=== PATIENT | male | born 1955 | race Caucasian/White ===

== ENCOUNTER → 2016-10-14 | Outpatient (CLI) | payer MEDICARE ==
--- NOTE | 2016-10-14 07:57 | MR ---
EXAMINATION TYPE: MR lumbar spine wo con DATE OF EXAM: 10/14/2016 COMPARISON: Prior MR lumbar spine 12/23/2013 HISTORY: Hereditary and idiopathic neuropathy, unspec, pain x 5 years TECHNIQUE: Multiplanar, multisequence images of the lumbar spine were acquired. L1-L2: Normal disc appearance without desiccation. No herniation, protrusion or disc bulging. No ca nal stenosis is present. Foramina are patent bilaterally. L2-L3: Posterior broad-based disc bulge causes mild anterior mass effect on the thecal sac. There is some facet arthropathy with hypertrophic change of the ligamentum flavum encroaches somewhat on the l ateral recesses right greater than left. On mild right-sided foraminal encroachment. L3-L4: Facet arthropathy with hypertrophy of the ligamentum flavum encroaches upon the lateral recess es. Circumferential extension of endplate disc complex contributes with scoliosis to cause some right -sided foraminal encroachment, there is anterior mass effect on the thecal sac. No significant centra l canal stenosis. L4-L5: Hypertrophy of ligamentum flavum, facet arthropathy change contributes with posterior disc her niation which extends somewhat eccentric towards the left resulting in left greater than right forami nal encroachment. There is moderate central canal stenosis, trefoil appearance of the thecal sac. L5-S1: Broad-based posterior disc bulge causes mild anterior mass effect on the thecal sac similar to prior exam. Facet arthropathy changes present. No significant central stenosis. Left-sided foraminal encroachment is present due to lateral extension endplate disc complex. Facet arthropathy, hypertrop hic ligamentum flavum and posterior extension of endplate disc complex eccentric towards the right li alma causes some mass effect on the right S1 neural foramen Lumbar segments are intact. No paraspinal masses are identified. Conus medullaris has a normal appe arance. Lumbar vertebral bodies show preserved height and alignment. There is multilevel spondylosis with endplate discogenic marrow signal change. Loss of disc height and signal present at the interver tebral levels with exception of L1 to. There is multilevel vacuum disc phenomenon additionally. There is a levoscoliosis centered at the mid lumbar spine. IMPRESSION: Spinal stenosis greatest at L4-5, multilevel foraminal encroachment, scoliosis, degenerative disc dis ease is similar to prior exam.
== END | disposition home or self-care (01) ==
LOC: RADMRIMAIN 06:59
PROVIDERS: ATTEND Family Medicine
DX: M48.06 Spinal stenosis, lumbar region (principal); M51.36 Other intervertebral disc degeneration, lumbar region; M41.86 Other forms of scoliosis, lumbar region
CPT/HCPCS: 72148

== ENCOUNTER 2016-11-07 11:00 | Day surgery (SDC) | payer MEDICARE ==
[2016-10-31 14:48] VITALS: BMI 36.2
[~2016-11-07 11:00] MED LIST: LACTATED RINGERS 1,000 ML IV SCH; LIDOCAINE 1% 20 ML VIAL (10MG/ML) FOR IV START INTRADERMA PRN
[2016-11-07] MEDS: CYCLOPENTOLATE 1% OPHTH SOLN 2 ML BTL OP ONE ×2 (12:32→12:44)
[2016-11-07] MEDS: PHENYLEPHRINE 10% OPHTH DROPS 5 ML BTL OP ONE ×3 (12:34→12:47)
[2016-11-07] MEDS: KETOROLAC 0.5% OPHTH DROPS 3 ML BTL OP ONE ×3 (12:36→12:50)
[2016-11-07 12:40] VITALS: RESP 16; TEMP 98.2
[2016-11-07] MEDS ORDERED: PROPOFOL 10 MG/ML 20 ML VIAL IV ONE (13:37)
[2016-11-07] MEDS ORDERED: EPINEPHrine (PF) 0.5 ML in BALANCED SALT IRRIG SOLN COMB2 500 ML IRRIGATION ONE (13:44)
[2016-11-07] MEDS ORDERED: HYALURONATE SODIUM INTRAOCULAR 1 EACH SYRINGE (10MG/ML) INTRAOCULA ONE (13:48)
[2016-11-07] MEDS ORDERED: BALANCED SALT IRRIG SOLN COMB2 15 ML IRRIG.SOLN IRRIGATION ONE (13:48)
--- NOTE | 2016-11-07 13:59 | P.OP ---
Date of Procedure: 11/07/16 Preoperative Diagnosis: Postoperative Diagnosis: Procedure(s) Performed: PREOPERATIVE DIAGNOSIS: Cataract, right eye. POSTOPERATIVE DIAGNOSIS: Cataract, right eye. OPERATION: Phacoemulsification cataract, right eye. DESCRIPTION OF PROCEDURE: The patient was taken to the preoperative holding area. Intravenous Propofol was given so as to bring about adequate sedation. The following mixture was given for local anesthesia: 5 mL of 2% lidocaine, 5 mL of 0.75% Marcaine, and 1 mL of Wydase. Approximately 4 mL was injected in the retrobulbar space of the surgical eye. Additional 1 mL was then directed to the temporal area of the surgical eye. This was performed to allow adequate neurological block of the facial muscles. The patient was revived and then taken into the operative room. The patient was prepped and draped in the usual sterile manner for the operative eye. A lid speculum was put into position. The conjunctiva was resected back from the limbus in the 12 o'clock position. Bleeding was controlled with electrocautery. A #69 blade was then used and a half-thickness scleral incision approximately 1-mm posterior to the limbus was made on bare sclera. This was shelved in the clear cornea using a crescent knife. Next a 15-degree blade was used to make a stab incision at the 3 o' clock position at the corneolimbal interface. Keratome blade was then used and the superior wound was extended into the anterior chamber. Viscoelastic was injected into the anterior chamber and to maintain its form. Next, a cystotome was used and a continuous anterior capsulotomy was made without difficulty. Hydrodissection using a blunt cannula and BSS was performed. Phaco probe was then employed and a groove extending from 12 to 6 o'clock in the lens was created. A Rafael wand was used through the stab incision so as to perform a divide and conquer technique. Next an irrigation aspiration probe was utilized and any residual cortex was removed from the eye. Again, viscoelastic was injected into the anterior chamber. An Kristopher posterior chamber lens implant was placed in the cartridge and injected into the anterior chamber without difficulty. The [place] [employer] hook was utilized to spin the lens into position and this was again performed without any difficulty. The irrigation and aspiration probe was again employed and any residual viscoelastic was removed from the eye. Then BSS was injected into the limbal stab incision and the anterior chamber re-inflated. The conjunctiva was reapproximated using electrocautery. One drop of 0.25% Timoptic was placed over the corneal along with TobraDex ophthalmic ointment. Two sterile patches and a Chan eye shield were taped into position. The patient was transported to the recovery room in stable condition. Implants: Pathology: none sent Condition: stable Disposition: same day Indications for Procedure: Operative Findings: Description of Procedure:
[2016-11-07 14:05] VITALS: PULSE 60
[2016-11-07 14:18] VITALS: BP 116/74
[2016-11-07] MEDS ORDERED: TIMOLOL 0.5% OPHTH SOLN (PF) 0.2 ML DROPERETTE OP ONE (23:00)
[2016-11-07] MEDS ORDERED: GENTAMICIN/PREDNISOL AC OPHTH OINT 3.5GM OPHTHALMIC ONE (23:00)
[2016-11-07] MEDS ORDERED: BUPIVACAINE (PF) 0.75% 5 ML, LIDOCAINE 4% (PF) 5 ML, HYALURONIDASE, HUMAN RECOMB 150 UNIT MISCELLANE ONE ×3 (23:00)
== END 2016-11-07 14:35 | disposition home or self-care (01) ==
LOC: OR 11:00
PROVIDERS: ATTEND Ophthalmology
DX: H26.9 Unspecified cataract (principal); E11.9 Type 2 diabetes mellitus without complications; I10 Essential (primary) hypertension; M19.90 Unspecified osteoarthritis, unspecified site; F32.9 Major depressive disorder, single episode, unspecified; J44.9 Chronic obstructive pulmonary disease, unspecified; F17.200 Nicotine dependence, unspecified, uncomplicated; M48.00 Spinal stenosis, site unspecified; Z79.82 Long term (current) use of aspirin; Z88.5 Allergy status to narcotic agent; Z79.899 Other long term (current) drug therapy
CPT/HCPCS: 66984; V2632; J2001; J3470; J0171; J2704

== ENCOUNTER 2018-11-06 13:04 | Day surgery (SDC) | payer MEDICARE ==
[2018-11-01 17:55] VITALS: BMI 38.0
[2018-11-06 13:34] VITALS: TEMP 98.9
[2018-11-06] MEDS ORDERED: PROPOFOL 10 MG/ML 20 ML VIAL IV ONE (13:44)
[2018-11-06] MEDS ORDERED: fentaNYL (PF) 50 MCG/ML 2 ML AMP ONE (13:44)
[2018-11-06] MEDS ORDERED: MIDAZOLAM 2 MG/2 ML VIAL ONE (13:44)
[2018-11-06] MEDS ORDERED: LIDOCAINE 1% INJ 10MG/ML (20 ML MDV) ONE (13:44)
--- NOTE | 2018-11-06 13:45 | P.GSHP ---
History of Present Illness H&P Date: 11/06/18 Chief Complaint: GERD This is a 62-year-old male with history of GERD. Patient is a known hiatal hernia. He presents today for EGD. Past Medical History Past Medical History: GERD/Reflux, Musculoskeletal Disorder Additional Past Medical History / Comment(s): HIATAL HERNIA. NEUROPATHY NAINA FEET. DDD, SPINAL STENOSIS, L3-L5 DISC HERNIATION. HX PEPTIC ULCER. SPINAL MENNIGITIS 1979'. VERTIGO. History of Any Multi-Drug Resistant Organisms: None Reported Past Surgical History: Orthopedic Surgery, Tonsillectomy Additional Past Surgical History / Comment(s): RT ROTATOR CUFF SURGERY X 2. I&D LEFT LEG D/T GANGRENE. SINUS SURGERY(DEVIATED SEPTUM). GANGLION CYSTS. INFECTED GROIN LYMPH NODES; LYMPH NODES REMOVED-BENIGN. BILAT CTR. EGD/COLONOSCOPY. LASER VARICOSE VEINS. Past Anesthesia/Blood Transfusion Reactions: Previous Problems w/ Anesthesia Additional Past Anesthesia/Blood Transfusion Reaction / Comment(s): NO HX BLOOD TRANSFUSION. WOKE DURING SINUS Sx, CATARACT Sx. Smoking Status: Former smoker - Past Family History Mother Family Medical History: Congestive Heart Failure (CHF), Diabetes Mellitus, Hypertension, Renal Disease Additional Family Medical History / Comment(s): X3 IA'S, PACEMAKER Father Family Medical History: CVA/TIA, Dementia, Hypertension Additional Family Medical History / Comment(s): PARKINSON'S, ETOH Medications and Allergies Home Medications Medication Instructions Recorded Confirmed Type ARIPiprazole [Abilify] 2 mg PO HS 11/01/18 11/01/18 History Famotidine [Pepcid] 40 mg PO HS 11/01/18 11/06/18 History HYDROcodone/APAP 5-325MG [[place] 1 tab PO Q6HR PRN 11/01/18 11/06/18 History 5-325] Meclizine [Antivert] 12.5 mg PO TID PRN 11/01/18 11/01/18 History Allergies Allergy/AdvReac Type Severity Reaction Status Date / Time venom-honey bee Allergy Swelling Verified 11/01/18 16:58 [bee venom (honey bee)] Surgical - Exam Vital Signs Temp Pulse Resp BP Pulse Ox 98.9 F 90 16 124/76 94 L 11/06/18 13:32 11/06/18 13:32 11/06/18 13:32 11/06/18 13:32 11/06/18 13:32 - General well developed, well nourished, no distress - Eyes PERRL - ENT normal pinna - Neck no masses - Respiratory normal expansion - Cardiovascular Rhythm: regular - Abdomen Abdomen: soft, non tender Assessment and Plan Assessment: GERD. We'll perform EGD.
--- NOTE | 2018-11-06 13:57 | P.OP ---
Date of Procedure: 11/06/18 Preoperative Diagnosis: GERD Postoperative Diagnosis: Antral gastritis Hiatal hernia Esophagitis Procedure(s) Performed: EGD Anesthesia: MAC Surgeon: Abdifatah Pinon Pathology: other (Antrum, esophagus) Condition: stable Disposition: PACU Description of Procedure: The patient's placed on the endoscopy table in the lateral position. He received IV sedation. The gastroscope was placed oropharynx passed in the esophagus and into the stomach. Scope was then placed through the pylorus. The first and second portion of duodenum appeared normal. Scope was then brought back the antrum this. Mildly inflamed. A biopsies was performed. Scope was then retroflexed and the manger of the stomach appeared normal. The GE junction was at 40 cm. Patient had a moderate to large hiatal hernia. The GE junction was at 38 cm. The distal esophagus appeared mildly inflamed and a biopsies performed. The proximal esophagus appeared normal. Scope withdrawn for patient.
[2018-11-06 14:00] VITALS: RESP 18
[2018-11-06 14:19] VITALS: BP 123/78; PULSE 68
== END 2018-11-06 14:35 | disposition home or self-care (01) ==
LOC: ORWHC2ENDO 13:04
PROVIDERS: ATTEND Surgery
DX: K21.0 Gastro-esophageal reflux disease with esophagitis (principal); K29.50 Unspecified chronic gastritis without bleeding; K44.9 Diaphragmatic hernia without obstruction or gangrene; M48.00 Spinal stenosis, site unspecified; G62.9 Polyneuropathy, unspecified; K21.9 Gastro-esophageal reflux disease without esophagitis; Z79.899 Other long term (current) drug therapy; Z79.891 Long term (current) use of opiate analgesic; Z91.030 Bee allergy status; Z98.49 Cataract extraction status, unspecified eye; Z87.891 Personal history of nicotine dependence; Z82.49 Family history of ischemic heart disease and other diseases of the circulatory system; Z83.3 Family history of diabetes mellitus
CPT/HCPCS: 88305; 43239; J2250; J2001; J3010; J2704

== ENCOUNTER 2018-11-07 07:18 | Inpatient (IN) | payer MEDICARE ==
[~2018-11-07 07:18] MED LIST changes: +DEXAMETHASONE SOD PHOSPHATE 10 MG/ML 1 ML VIAL IV ONE; -LACTATED RINGERS 1,000 ML IV SCH; -LIDOCAINE 1% 20 ML VIAL (10MG/ML) FOR IV START INTRADERMA PRN; +MIDAZOLAM 2 MG/2 ML VIAL IV PRN; +ONDANSETRON 4 MG/2 ML VIAL IVP ONE; +SCOPOLAMINE 1.5MG/72HR PATCH TRANSDERM ONE; +ceFAZolin 3 GM in SODIUM CHLORIDE 0.9% 100 ML IVPB ONE
[2018-11-07] MEDS ORDERED: HEPARIN SODIUM,PORCINE 5,000 UNIT/ML 1 ML VIAL SQ ONE (08:40)
--- NOTE | 2018-11-07 08:41 | P.GSHP ---
History of Present Illness H&P Date: 11/07/18 Chief Complaint: GERD This is a 62-year-old male who has complaints of GERD. NThe patient has had long-standing problems with reflux esophagitis. The patien t underwent recent EGD is found have evidence of esophagitis. Patient has been well informed on the procedure of laparoscopic Elio fundoplication. The patient is aware the risk of the conversion to the open procedure, risk of injury to the stomach, liver and spleen. The patient is also a risk of recurrent GERD and dysphagia symptoms. The patient understands there is a postoperative diet of full liquids for 2 weeks after surgery. Past Medical History Past Medical History: GERD/Reflux, Musculoskeletal Disorder Additional Past Medical History / Comment(s): HIATAL HERNIA. NEUROPATHY NAINA FEET. DDD, SPINAL STENOSIS, L3-L5 DISC HERNIATION. HX PEPTIC ULCER. SPINAL MENNIGITIS 1979'. VERTIGO. History of Any Multi-Drug Resistant Organisms: None Reported Past Surgical History: Orthopedic Surgery, Tonsillectomy Additional Past Surgical History / Comment(s): RT ROTATOR CUFF SURGERY X 2. I&D LEFT LEG D/T GANGRENE. SINUS SURGERY(DEVIATED SEPTUM). GANGLION CYSTS. INFECTED GROIN LYMPH NODES; LYMPH NODES REMOVED-BENIGN. BILAT CTR. EGD/C OLONOSCOPY. LASER VARICOSE VEINS. Past Anesthesia/Blood Transfusion Reactions: Previous Problems w/ Anesthesia Additional Past Anesthesia/Blood Transfusion Reaction / Comment(s): NO HX BLOOD TRANSFUSION. WOKE DURING SINUS Sx, CATARACT Sx. Past Psychological History: Anxiety, Depression Smoking Status: Former smoker Past Alcohol Use History: None Reported Additional Past Alcohol Use History / Comment(s): QUIT SMOKING IN 2009, SMOKING AT AGE 15, SMOKED 1 PPD. Past Drug Use History: None Reported - Past Family History Mother Family Medical History: Congestive Heart Failure (CHF), Diabetes Mellitus, Hypertension, Renal Disease Additional Family Medical History / Comment(s): X3 NC'S, PACEMAKER Father Family Medical History: CVA/TIA, Dementia, Hypertension Additional Family Medical History / Comment(s): PARKINSON'S, ETOH Medications and Allergies Home Medications Medication Instructions Recorded Confirmed Type ARIPiprazole [Abilify] 2 mg PO HS 11/01/18 11/01/18 History Famotidine [Pepcid] 40 mg PO HS 11/01/18 11/06/18 History HYDROcodone/APAP 5-325MG [[place] 1 tab PO Q6HR PRN 11/01/18 11/06/18 History 5-325] Meclizine [Antivert] 12.5 mg PO TID PRN 11/01/18 11/01/18 History Allergies Allergy/AdvReac Type Severity Reaction Status Date / Time venom-honey bee Allergy Swelling Verified 11/01/18 16:58 [bee venom (honey bee)] Surgical - Exam Vital Signs Temp Pulse Resp BP Pulse Ox 98.1 F 69 20 128/68 94 L 11/07/18 08:20 11/07/18 08:20 11/07/18 08:20 11/07/18 08:20 11/07/18 08:20 - General well developed, well nourished, no distress - Eyes PERRL - ENT normal pinna - Neck no masses - Respiratory normal expansion - Cardiovascular Rhythm: regular - Abdomen Abdomen: soft, non tender Results - Labs 11/07/18 08:20 Diabetes panel 11/07/18 Range/Units 08:20 Potassium 4.6 (3.5-5.1) mmol/L Pituitary panel 11/07/18 Range/Units 08:20 Potassium 4.6 (3.5-5.1) mmol/L Adrenal panel 11/07/18 Range/Units 08:20 Potassium 4.6 (3.5-5.1) mmol/L Assessment and Plan Assessment: GERD. We'll perform EGD.
[2018-11-07] MEDS ORDERED: MIDAZOLAM 2 MG/2 ML VIAL ONE (09:07)
[2018-11-07] MEDS ORDERED: GLYCOPYRROLATE 0.2 MG/ML 2 ML VIAL ONE (09:07)
[2018-11-07] MEDS ORDERED: SUCCINYLCHOLINE CHLORIDE 100 MG/5 ML SYR IV ONE (09:07)
[2018-11-07] MEDS ORDERED: LIDOCAINE 1% INJ 10MG/ML (20 ML MDV) ONE (09:07)
[2018-11-07] MEDS ORDERED: fentaNYL (PF) 50 MCG/ML 2 ML AMP ONE (09:07)
[2018-11-07] MEDS ORDERED: ROCURONIUM BROMIDE 10 MG/ML 10 ML VIAL IV ONE (09:07)
[2018-11-07] MEDS ORDERED: NEOSTIGMINE 1 MG/ML 10 ML VIAL ONE (09:07)
[2018-11-07] MEDS ORDERED: PHENYLEPHRINE-0.9% NACL SYG 1 MG/10 ML SYRINGE ONE (09:07)
[2018-11-07] MEDS ORDERED: PROPOFOL 10 MG/ML 20 ML VIAL IV ONE (09:07)
[2018-11-07] MEDS ORDERED: LACTATED RINGERS 700 ML IV ONE (09:13)
[2018-11-07] MEDS ORDERED: BUPIVACAIN-EPI 0.25%-1:200,000 30 ML VIAL SQ ONE (09:47)
[2018-11-07] MEDS ORDERED: LACTATED RINGERS 1,000 ML IV ONE (09:56)
[2018-11-07] MEDS: HYDROmorphone 0.5 MG/0.5 ML SYRINGE IVP PRN ×4 (10:19→10:50)
[2018-11-07] MEDS ORDERED: HYDROmorphone 1 MG/ML 1 ML SYRINGE IVP PRN (10:24)
--- NOTE | 2018-11-07 10:24 | P.OP ---
Date of Procedure: 11/07/18 Preoperative Diagnosis: GERD Postoperative Diagnosis: GERD Procedure(s) Performed: Laparoscopic Elio fundoplication Anesthesia: CEM Surgeon: Abdifatah Pinon Estimated Blood Loss (ml): 5 Pathology: none sent Condition: stable Disposition: PACU Description of Procedure: HarThe patient was placed on the operating table in the supine position. The patient received general anesthesia. And was placed in dorsal lithotomy position. The patient was prepped and draped in the usual sterile fashion. The skin incision sites were anesthetized with 1% local Xylocaine. The skin was incised in the left periumbilical area and then using a blade less 5 mm trocar under direct visualization panel cavity was entered. After adequate insufflation the laparoscope was then placed into the peritoneal cavity. Next a 5 mm trochars placed in the right epigastric position. Another 5 millimeter trocar the right lateral position. Another 5 millimeter trocar in the left lateral position a 5 mm trocar is placed in the left epigastric position. And then the initial 5 mm trocar was exchanged for a 10 mm trocar. The left lateral lobe liver was retracted. The hernia was seen. The crural defect was then dissected using the Harmonic scissors device. A 360 crural dissection was performed the esophagus stomach was reduced back into the peritoneal Cavity. The crural defect was then closed using 2-0 Ethibond suture. Next the fundus of the stomach was mobilized using the [place] scissors device. and then a 58- [place] bougie dilator was placed oropharynx passed into the esophagus and stomach the fundal plication wrap was then performed by grasping the fundus post eriorly and bringing it around the esophagus and stomach fundoplication was then performed using 2-0 Ethibond suture. Care was taken that the fundal location rested over top of the intra-abdominal esophagus. There was no injury seen to the stomach or esophagus. The dilator was then withdrawn. The abdomen was irrigated there is no bleeding seen. The trochars were then withdrawn and then skin incision sites were closed using 3-0 Monocryl suture Steri-Strips are applied. Patient thought procedure well and sent to recovery room in stable condition.
[2018-11-07] MEDS: LACTATED RINGERS 1,000 ML IV SCH (13:30)
[2018-11-07] MEDS ORDERED: ACETAMINOPHEN TAB 325 MG TAB PO PRN (14:15)
[2018-11-07] MEDS ORDERED: HYDROcodone/APAP 5-325MG 1 EACH TAB PO PRN (14:15)
--- NOTE | 2018-11-07 15:34 | FL ---
EXAMINATION TYPE: FL esophagus cervic/pharynx DATE OF EXAM: 11/07/2018 COMPARISON: NONE HISTORY: Post Myles fundoplication TECHNIQUE: A single contrast UGI study is performed. FINDINGS: There is moderate free air under the diaphragms. The gastroesophageal junction opens to a normal caliber. There is mild to moderate hesitancy of contr ast passing through the postsurgical Myles. Fluid within the stomach is unremarkable. IMPRESSION: 1. No extravasation of contrast post Myles fundoplication. No significant stenosis is noted
[2018-11-07] MEDS ORDERED: BENZOCAINE/MENTHOL LOZENG 1 EACH LOZENGE MUCOUS MEM PRN (16:54)
[2018-11-07] MEDS: D5-0.45% NACL WITH KCL 20MEQ/L 1,000 ML IV SCH ×2 (18:30→18:32)
[2018-11-08] MEDS: LACTATED RINGERS 1,000 ML IV SCH (04:32)
[2018-11-08] MEDS: D5-0.45% NACL WITH KCL 20MEQ/L 1,000 ML IV SCH ×2 (06:16→09:23)
[2018-11-08 07:32] VITALS: BP 134/82; PULSE 73; RESP 16; TEMP 98.2
[2018-11-08] MEDS ORDERED: ENOXAPARIN 40 MG/0.4 ML SYRINGE SQ SCH (09:00)
[2018-11-08 09:08] LABS: African American GFR (CKD) >90 (>60 ml/min/1.73 sqM); Anion Gap 12 mmol/L; Blood Urea Nitrogen 11 mg/dL (9-20); Calcium 8.6 mg/dL (8.4-10.2); Carbon Dioxide 24 mmol/L (22-30); Chloride 104 mmol/L (98-107); Glucose 158 mg/dL (74-99); Magnesium 2.1 mg/dL (1.6-2.3); Non-African American GFR(CKD) >90 (>60 ml/min/1.73 sqM); Sodium 140 mmol/L (137-145)
[2018-11-08 09:18] LABS: Basophils % (A) 0 %; Eosinophils # (A) 0.1 k/uL (0-0.7); Eosinophils % (A) 1 %; HCT 42.8 % (39.0-53.0); HGB 13.8 gm/dL (13.0-17.5); Lymphocytes # (A) 1.2 k/uL (1.0-4.8); Lymphocytes % (A) 12 %; MCH 29.3 pg (25.0-35.0); MCHC 32.1 g/dL (31.0-37.0); MCV 91.2 fL (80.0-100.0); Mean Platelet Volume 7.9; Monocytes # (A) 0.5 k/uL (0-1.0); Monocytes % (A) 5 %; Neutrophils # (A) 8.5 k/uL (1.3-7.7); Neutrophils % (A) 82 %; Platelet Count 297 k/uL (150-450); RDW 13.1 % (11.5-15.5); WBC 10.4 k/uL (3.8-10.6)
--- NOTE | 2018-11-08 12:09 | P.DS ---
Providers Date of admission: 11/07/18 07:18 Expected date of discharge: 11/08/18 Attending physician: Abdifatah Pinon Primary care physician: Stated None Hospital Course: 62-year-old male who underwent Elio fundoplication with Dr. Pinon on 11/07/2018. Patient is doing well postoperatively. Esophagram completed negative for leak or obstruction. He is tolerating clear liquid diet. Pain controlled with oral medications. Vital signs have an stable. He is stable for discharge home today. Please see EMR for further hospital course details. Discharge diagnosis 1. GERD, status post Elio fundoplication Nurse practitioner note has been reviewed by physician. Signing provider agrees with the documented findings, assessment, and plan of care. Plan - Discharge Summary Discharge Rx Participant: Yes New Discharge Prescriptions: Continue Meclizine [Antivert] 12.5 mg PO TID PRN PRN Reason: Vertigo ARIPiprazole [Abilify] 2 mg PO HS HYDROcodone/APAP 5-325MG [[place] 5-325] 1 tab PO Q6HR PRN #10 tab PRN Reason: Pain Discontinued Famotidine [Pepcid] 40 mg PO HS Discharge Medication List ARIPiprazole [Abilify] 2 mg PO HS 11/01/18 [History] Meclizine [Antivert] 12.5 mg PO TID PRN 11/01/18 [History] HYDROcodone/APAP 5-325MG [[place] 5-325] 1 tab PO Q6HR PRN #10 tab 11/08/18 [Rx] Follow up Appointment(s)/Referral(s): Abdifatah Pinon MD [STAFF PHYSICIAN] - 11/21/18 1:40 pm Patient Instructions/Handouts: *Surgery [facility] - ([facility]) Lap Elio Fundiplication Post-Op Instructions Activity/Diet/Wound Care/Special Instructions: No driving while taking [place] No lifting over 10 pounds You may shower. No soaking or tub baths Very light activity until you are reevaluated at your follow up appointment with your surgeon Full liquid diet until followup with Dr Haji. All liquids and creamed soups, pudding, yogurt, ice cream, sherbert, oatmeal, etc. Pureed "baby like" foods ok also.
[2018-11-08 12:23] VITALS: BMI 38.0
== END 2018-11-08 12:40 | disposition home or self-care (01) | DRG 328 ==
LOC: 2ORMAIN 07:18 → EDSTATUS 08:30 → 4SSUR 12:59
PROVIDERS: ADMIT Surgery; ATTEND Surgery
PROC: 0BQT4ZZ Repair Diaphragm, Percutaneous Endoscopic Approach (ICD-10-PCS; 2018-11-07)
PROC: 0DV44ZZ Restriction of Esophagogastric Junction, Percutaneous Endoscopic Approach (ICD-10-PCS; principal; 2018-11-07 08:30)
DX: K21.0 Gastro-esophageal reflux disease with esophagitis (principal); G62.9 Polyneuropathy, unspecified; K44.9 Diaphragmatic hernia without obstruction or gangrene; M48.061 Spinal stenosis, lumbar region without neurogenic claudication; M51.26 Other intervertebral disc displacement, lumbar region; Z79.899 Other long term (current) drug therapy; Z87.11 Personal history of peptic ulcer disease; Z86.61 Personal history of infections of the central nervous system; Z98.890 Other specified postprocedural states; Z87.891 Personal history of nicotine dependence; Z86.59 Personal history of other mental and behavioral disorders; Z91.030 Bee allergy status; Z82.49 Family history of ischemic heart disease and other diseases of the circulatory system; Z83.3 Family history of diabetes mellitus; Z84.1 Family history of disorders of kidney and ureter; Z82.3 Family history of stroke; Z82.0 Family history of epilepsy and other diseases of the nervous system; Z81.1 Family history of alcohol abuse and dependence
CPT/HCPCS: 43239; 74210; 80048; 83735; 84132; 85025; 88305

== ENCOUNTER → 2019-02-25 | Outpatient (CLI) | payer MEDICARE ==
--- NOTE | 2019-02-25 09:30 | NM ---
EXAMINATION TYPE: NM hepatobiliary w CCK DATE OF EXAM: 02/25/2019 COMPARISON: NONE HISTORY: Chronic cholecystitis TECHNIQUE: After the intravenous administration of 4.8 mCi Tc 99m Mebrofenin hepatobiliary scintigrap hy is performed. Immediate images post injection. FINDINGS: There is satisfactory initial accumulation of tracer by the liver. The gallbladder is visualized wit hin 8 minutes. The small bowel activity is noted within 14 minutes. At one hour CCK was administere d, patient was injected with 2.4 mcg of Kinevac, and gallbladder ejection fraction is calculated at 2 9 %, in the normal range. Therefore there is no scintigraphic evidence of cystic or common bile duct obstruction to suggest acute cholecystitis or gallbladder dyskinesia. IMPRESSION: Exam is within normal limits.
== END | disposition home or self-care (01) ==
LOC: RADNMMAIN 06:49
PROVIDERS: ATTEND Surgery
DX: K81.1 Chronic cholecystitis (principal)
CPT/HCPCS: 78227; A9537; J2805

== ENCOUNTER 2019-03-27 07:46 | Day surgery (SDC) | payer MEDICARE ==
[2019-03-25 10:05] VITALS: BMI 36.3
[~2019-03-27 07:46] MED LIST changes: +HEPARIN SODIUM,PORCINE 5,000 UNIT/ML 1 ML VIAL SQ ONE; +HYDROmorphone 0.5 MG/0.5 ML SYRINGE IVP PRN; +LACTATED RINGERS 1,000 ML IV SCH; +LIDOCAINE 1% 20 ML VIAL (10MG/ML) FOR IV START INTRADERMA PRN; -MIDAZOLAM 2 MG/2 ML VIAL IV PRN
--- NOTE | 2019-03-27 08:41 | P.GSHP ---
History of Present Illness H&P Date: 03/27/19 Chief Complaint: Right upper quadrant pain This a 63-year-old male presents today for laparoscopic cholecystectomy. Patient's exploratory quadrant pain. He had a recent HIDA scan which shows a diminished ejection fraction consistent with chronic cholecystitis. Past Medical History Past Medical History: GERD/Reflux, Musculoskeletal Disorder Additional Past Medical History / Comment(s): NEUROPATHY NAINA FEET. DDD, SPINAL STENOSIS, L3-L5 DISC HERNIATION. HX PEPTIC ULCER. SPINAL MENINGITIS . VERTIGO. GALLBLADDER DISORDER History of Any Multi-Drug Resistant Organisms: None Reported Past Surgical History: Hernia Repair, Orthopedic Surgery, Tonsillectomy Additional Past Surgical History / Comment(s): RT ROTATOR CUFF SURGERY X 2. I&D LEFT LEG D/T GANGRENE. SINUS SURGERY(DEVIATED SEPTUM). GANGLION CYSTS. INFECTED GROIN LYMPH NODES; LYMPH NODES REMOVED-BENIGN. BILAT CTR. EGD/COLONOSCOPY. LASER VARICOSE VEINS. CHRIS 11/07/18 Past Anesthesia/Blood Transfusion Reactions: Previous Problems w/ Anesthesia Additional Past Anesthesia/Blood Transfusion Reaction / Comment(s): NO HX BLOOD TRANSFUSION. WOKE DURING SINUS Sx, CATARACT Sx. Past Psychological History: Anxiety, Depression Smoking Status: Former smoker Past Alcohol Use History: None Reported Additional Past Alcohol Use History / Comment(s): QUIT SMOKING IN 2009, SMOKING AT AGE 15, SMOKED 1 PPD. Past Drug Use History: None Reported - Past Family History Mother Family Medical History: Congestive Heart Failure (CHF), Diabetes Mellitus, Hypertension, Renal Disease Additional Family Medical History / Comment(s): X3 OH'S, PACEMAKER Father Family Medical History: CVA/TIA, Dementia, Hypertension Additional Family Medical History / Comment(s): PARKINSON'S, ETOH Medications and Allergies Home Medications Medication Instructions Recorded Confirmed Type Aspirin [[place] Aspirin EC] 81 mg PO DAILY 03/25/19 03/25/19 History Escitalopram [Lexapro] 20 mg PO DAILY 03/25/19 03/25/19 History Psyllium Husk (with Sugar) 1 dose PO DAILY 03/25/19 03/25/19 History [Metamucil Powder] Allergies Allergy/AdvReac Type Severity Reaction Status Date / Time venom-honey bee Allergy Swelling Verified 03/25/19 09:57 [bee venom (honey bee)] Surgical - Exam - General well developed, well nourished, no distress - Eyes PERRL - ENT normal pinna - Neck no masses - Respiratory normal expansion - Cardiovascular Rhythm: regular - Abdomen Abdomen: soft, non tender Assessment and Plan Assessment: Chronic cholecystitis. We'll perform laparoscopic cholecystectomy
[2019-03-27] MEDS ORDERED: fentaNYL (PF) 50 MCG/ML 2 ML AMP ONE (09:09)
[2019-03-27] MEDS ORDERED: NEOSTIGMINE 1 MG/ML 10 ML VIAL ONE (09:09)
[2019-03-27] MEDS ORDERED: GLYCOPYRROLATE 0.2 MG/ML 2 ML VIAL ONE (09:09)
[2019-03-27] MEDS ORDERED: LIDOCAINE 1% INJ 10MG/ML (20 ML MDV) ONE (09:09)
[2019-03-27] MEDS ORDERED: KETOROLAC 30 MG/ML 1 ML VIAL ONE (09:09)
[2019-03-27] MEDS ORDERED: MIDAZOLAM 2 MG/2 ML VIAL ONE (09:09)
[2019-03-27] MEDS ORDERED: PROPOFOL 10 MG/ML 20 ML VIAL IV ONE (09:09)
[2019-03-27] MEDS ORDERED: SUCCINYLCHOLINE CHLORIDE VIAL 200 MG/10 ML VIAL IV ONE (09:09)
[2019-03-27] MEDS ORDERED: ROCURONIUM BROMIDE 10 MG/ML 10 ML VIAL IV ONE (09:09)
[2019-03-27] MEDS ORDERED: BUPIVACAIN-EPI 0.25%-1:200,000 30 ML VIAL SQ ONE (09:37)
[2019-03-27 10:15] VITALS: TEMP 98.6
[2019-03-27 11:07] VITALS: RESP 16
[2019-03-27] MEDS ORDERED: LACTATED RINGERS 1,000 ML IV ONE (11:08)
[2019-03-27 11:35] VITALS: BP 110/64; PULSE 58
--- NOTE | 2019-04-03 12:57 | P.OP ---
Date of Procedure: 03/27/19 Preoperative Diagnosis: Cholecystitis Postoperative Diagnosis: Cholecystitis Procedure(s) Performed: Laparoscopic cholecystectomy Anesthesia: CEM Surgeon: Abdifatah Pinon Estimated Blood Loss (ml): 5 Pathology: other (Gallbladder) Condition: stable Disposition: PACU Description of Procedure: The patient was placed on the operating table. The patient received a general endotracheal tube anesthesia. The patients abdomen was prepped and draped in the usual sterile fashion. Through an infraumbilical stab incision, the fascia of the anterior abdominal wall was grasped with a pair of Kochers and then the Veress needle was placed in the peritoneal cavity. Position of the Veress needle was confirmed with positive drop test. The abdomen was then insufflated. After adequate insufflation, the 10 mm trocar was placed in the peritoneal cavity. Following this the laparoscope was placed in the peritoneal cavity. The patient was placed in the head-up, right side up position and then a 5 mm trocar was placed in the right lateral and right subcostal position under direct visualization. A 8 mm trocar was placed in the epigastric position. The gallbladder was grasped in the fundus and infundibulum. Traction on the gallbladder was placed in the lateral and the cephalad positions. The triangle of Calot was visualized.. The cystic duct was bluntly dissected until the union of the cystic duct and common bile duct was seen. A critical view of safety was achieved. The cystic duct was then divided and sealed with the Harmonic scissors. A PDS Endoloop was then placed throughout the cystic duct stump. The cystic artery divided and sealed with the Harmonic scissors. The gallbladder was then removed from the liver bed using Harmonic scissors. The gallbladder was then extracted through the epigastric port site. Operative field was checked for any bleeding spots and Harmonic scissors was used to coagulate the liver bed. The abdomen was irrigated. The trocars were removed. The skin was closed using interrupted 3-0 Vicryl suture. Dermabond dressing were applied. The patient tolerated the procedure well.
== END 2019-03-27 12:03 | disposition home or self-care (01) ==
LOC: OR 07:46
PROVIDERS: ATTEND Surgery
DX: K81.2 Acute cholecystitis with chronic cholecystitis (principal); K82.8 Other specified diseases of gallbladder; G62.9 Polyneuropathy, unspecified; K21.9 Gastro-esophageal reflux disease without esophagitis; M51.36 Other intervertebral disc degeneration, lumbar region; M48.061 Spinal stenosis, lumbar region without neurogenic claudication; F41.9 Anxiety disorder, unspecified; F32.9 Major depressive disorder, single episode, unspecified; Z79.82 Long term (current) use of aspirin; Z91.030 Bee allergy status; Z87.891 Personal history of nicotine dependence; Z79.899 Other long term (current) drug therapy; Z98.890 Other specified postprocedural states; Z87.11 Personal history of peptic ulcer disease; Z98.49 Cataract extraction status, unspecified eye; Z83.3 Family history of diabetes mellitus; Z82.49 Family history of ischemic heart disease and other diseases of the circulatory system; Z81.8 Family history of other mental and behavioral disorders; Z81.1 Family history of alcohol abuse and dependence
CPT/HCPCS: 88304; 47562; J2250; J0330; J1644; J1100; J2710; J2405; J2001; J3010; J1885; J2704

== ENCOUNTER 2020-10-06 06:53 | Emergency (ER) | payer MEDICARE ==
[2020-10-06] MEDS ORDERED: KETOROLAC 15 MG/ML 1 ML VIAL IM STA (07:13)
--- NOTE | 2020-10-06 07:38 | ED ---
General Adult HPI - General Chief complaint: Neck Pain/Injury Stated complaint: IHS-Neck Pain Time Seen by Provider: 10/06/20 07:04 Source: patient, RN notes reviewed, old records reviewed Mode of arrival: ambulatory - History of Present Illness Initial comments: 64-year-old male presenting for evaluation of neck pain and headache. Symptoms have been present for the past one month. They initiated with a bending motion that occurred while taking a cookie sheet out of the oven. He had seen a provider who recommended physical therapy. He states that any movement makes this significantly worse. He is not on any anti-inflammatories or muscle relaxers currently. He is currently not taking any medication for the pain. He has no chronic medical problems noted. He denies chest pain. Denies limb weakness. Denies numbness to the arms. Pain is midline and bilateral upper neck pain and occipital headache. No fever. - Related Data Home Medications Medication Instructions Recorded Confirmed Aspirin [[place] Aspirin EC] 81 mg PO DAILY 03/25/19 03/25/19 Escitalopram [Lexapro] 20 mg PO DAILY 03/25/19 03/25/19 Psyllium Husk (with Sugar) 1 dose PO DAILY 03/25/19 03/25/19 [Metamucil Powder] Previous Rx's Medication Instructions Recorded Docusate [Colace] 100 mg PO BID #20 capsule 03/27/19 HYDROcodone/APAP 5-325MG [[place] 1 tab PO Q6HR PRN #10 tab 03/27/19 5-325] Cyclobenzaprine [Flexeril] 5 mg PO TID PRN #9 tablet 10/06/20 Ibuprofen [Motrin] 600 mg PO Q8HR PRN #24 tab 10/06/20 Allergies Allergy/AdvReac Type Severity Reaction Status Date / Time venom-honey bee Allergy Swelling Verified 03/25/19 09:57 [bee venom (honey bee)] Review of Systems ROS Statement: Those systems with pertinent positive or pertinent negative responses have been documented in the HPI. ROS Other: All systems not noted in ROS Statement are negative. Past Medical History Past Medical History: GERD/Reflux, Musculoskeletal Disorder Additional Past Medical History / Comment(s): NEUROPATHY NAINA FEET. DDD, SPINAL STENOSIS, L3-L5 DISC HERNIATION. HX PEPTIC ULCER. SPINAL MENINGITIS . VERTIGO. GALLBLADDER DISORDER History of Any Multi-Drug Resistant Organisms: None Reported Past Surgical History: Hernia Repair, Orthopedic Surgery, Tonsillectomy Additional Past Surgical History / Comment(s): RT ROTATOR CUFF SURGERY X 2. I&D LEFT LEG D/T GANGRENE. SINUS SURGERY(DEVIATED SEPTUM). GANGLION CYSTS. INFECTED GROIN LYMPH NODES; LYMPH NODES REMOVED-BENIGN. BILAT CTR. EGD/COLONOSCOPY. LASER VARICOSE VEINS. CHRIS 11/07/18 Past Anesthesia/Blood Transfusion Reactions: Previous Problems w/ Anesthesia Additional Past Anesthesia/Blood Transfusion Reaction / Comment(s): NO HX BLOOD TRANSFUSION. WOKE DURING SINUS Sx, CATARACT Sx. Past Psychological History: Anxiety, Depression Smoking Status: Former smoker Past Alcohol Use History: None Reported Past Drug Use History: None Reported - Past Family History Mother Family Medical History: Congestive Heart Failure (CHF), Diabetes Mellitus, Hypertension, Renal Disease Additional Family Medical History / Comment(s): X3 [place], PACEMAKER Father Family Medical History: CVA/TIA, Dementia, Hypertension Additional Family Medical History / Comment(s): PARKINSON'S, ETOH General Exam General appearance: alert, in no apparent distress Head exam: Present: atraumatic, normocephalic Eye exam: Present: normal appearance, PERRL ENT exam: Present: normal exam Neck exam: Present: normal inspection, tenderness (Patient has significant tenderness and pain with range of motion in the upper neck both midline and paraspinal.). Absent: full ROM Cardiovascular Exam: Present: regular rate, normal rhythm GI/Abdominal exam: Present: soft. Absent: distended, tenderness, guarding Extremities exam: Present: normal inspection, normal capillary refill. Absent: pedal edema Neurological exam: Present: alert, oriented X3, CN II-XII intact, other (Bilateral upper extremities are strong, 5 out of 5, normal traffic assistant strength). Absent: motor sensory deficit Psychiatric exam: Present: normal affect, normal mood Skin exam: Present: warm, dry, intact. Absent: cyanosis, diaphoretic Course Vital Signs 10/06/20 07:03 Temperature 98 F Pulse Rate 61 Respiratory 18 Rate Blood Pressure 168/92 O2 Sat by Pulse 98 Oximetry - Reevaluation(s) Reevaluation #1: 10/06/20 08:30 Patient reevaluated, 100% improved. Without complaint. Eager for discharge. Medical Decision Making - Medical Decision Making 64-year-old male with one month of neck pain after bending issue. There was no blunt trauma. Patient is afebrile. Neurologic exam is traffic assistant strength bilaterally. CT brain and CT shows some arthritis of the cervical spine with fracture, no malalignment. CT brain is negative for process. Patient feeling better after Toradol. Motrin and muscle relaxer. He will follow-up with his PCP and is given referral to orthopedics Disposition Clinical Impression: Strain of neck muscle Disposition: HOME SELF-CARE Condition: Good Instructions (If sedation given, give patient instructions): Cervical Strain (ED), Cervical Sprain (ED) Prescriptions: Cyclobenzaprine [Flexeril] 5 mg PO TID PRN #9 tablet PRN Reason: Muscle Spasm Ibuprofen [Motrin] 600 mg PO Q8HR PRN #24 tab PRN Reason: Pain Is patient prescribed a controlled substance at d/c from ED?: No Referrals: Shoaib Martinez MD [Primary Care Provider] - 1-2 days Barb Garcia DO [Doctor of Osteopathic Medicine] - 1-2 days Time of Disposition: 08:23
--- NOTE | 2020-10-06 08:18 | CT ---
EXAMINATION TYPE: CT brain estephanie damon DATE OF EXAM: 10/06/2020 COMPARISON: None HISTORY: JOHANSEN/neck pain CT DLP: 1738.[address] of the brain was performed. The ventricles, basal cisterns and sulci overlying the cerebral convexities demonstrate mild enlargem ent. There is no evidence for intracranial hemorrhage or sulcal effacement. There is decreased attenuatio n about the periventricular white matter and deep white matter of both cerebral hemispheres, compatib le with chronic small vessel ischemia. No mass effects are seen. If symptoms persist consider MRI. Osseous calvarium is intact. IMPRESSION: 1. Age related atrophic and chronic small vessel ischemic change without acute intracranial process seen at this time. CT Cervical Spine: Unenhanced CT of the cervical spine was performed with bone and soft tissue window settings submitted . Coronal and sagittal reconstruction is obtained. There is normal alignment and prevertebral soft tissues. No evidence for acute cervical fracture . Scattered degenerative disc disease and spondylosis. Biapical scarring. IMPRESSION: 1. No evidence for acute fracture or subluxation of the cervical spine.
[2020-10-06 08:32] VITALS: BP 136/82; PULSE 72; RESP 16
[2020-10-06 08:33] VITALS: TEMP 98.2
== END 2020-10-06 08:34 | disposition home or self-care (01) ==
LOC: EC 06:53
DX: S16.1XXA Strain of muscle, fascia and tendon at neck level, initial encounter (principal); F32.9 Major depressive disorder, single episode, unspecified; K21.9 Gastro-esophageal reflux disease without esophagitis; Z79.82 Long term (current) use of aspirin; Z87.891 Personal history of nicotine dependence; F41.9 Anxiety disorder, unspecified; X58.XXXA Exposure to other specified factors, initial encounter
CPT/HCPCS: 72125; 70450; 99284; 96372; J1885

== ENCOUNTER → 2021-04-15 | Outpatient (CLI) | payer MEDICARE ==
[2021-04-15 12:31] LABS: Basophils % (A) 1 %; Eosinophils # (A) 0.2 k/uL (0-0.7); Eosinophils % (A) 3 %; HCT 46.3 % (39.0-53.0); Lymphocytes % (A) 21 %; MCH 30.4 pg (25.0-35.0); MCHC 32.3 g/dL (31.0-37.0); Mean Platelet Volume 7.8; Monocytes # (A) 0.4 k/uL (0-1.0); Monocytes % (A) 8 %; Neutrophils % (A) 64 %; Platelet Count 312 k/uL (150-450); RBC 4.93 m/uL (4.30-5.90); RDW 13.4 % (11.5-15.5); WBC 4.7 k/uL (3.8-10.6)
[2021-04-15 12:40] LABS: ALT 21 U/L (4-49); AST 29 U/L (17-59); African American GFR (CKD) >90 (>60 ml/min/1.73 sqM); Albumin 4.1 g/dL (3.5-5.0); Albumin/Globulin Ratio 1.4; Alkaline Phosphatase 60 U/L (38-126); Amylase 65 U/L (30-110); Anion Gap 5 mmol/L; Blood Urea Nitrogen 11 mg/dL (9-20); Calcium 9.4 mg/dL (8.4-10.2); Carbon Dioxide 33 mmol/L (22-30); Chloride 100 mmol/L (98-107); Glucose 102 mg/dL (74-99); Lipase 825 U/L (23-300); Non-African American GFR(CKD) >90 (>60 ml/min/1.73 sqM); Potassium 4.8 mmol/L (3.5-5.1); Sodium 138 mmol/L (137-145); Total Bilirubin 0.7 mg/dL (0.2-1.3); Total Protein 7.1 g/dL (6.3-8.2)
== END | disposition home or self-care (01) ==
LOC: LABWHC1 11:41
PROVIDERS: ATTEND Physician Assistant Medical
DX: R10.13 Epigastric pain (principal); R35.0 Frequency of micturition
CPT/HCPCS: 36415; 80053; 82150; 83605; 83690; 84153; 85025

== ENCOUNTER 2021-06-03 10:38 | Day surgery (SDC) | payer MEDICARE ==
[2021-06-02 09:54] VITALS: BMI 37.3
[~2021-06-03 10:38] MED LIST changes: -DEXAMETHASONE SOD PHOSPHATE 10 MG/ML 1 ML VIAL IV ONE; -HEPARIN SODIUM,PORCINE 5,000 UNIT/ML 1 ML VIAL SQ ONE; -HYDROmorphone 0.5 MG/0.5 ML SYRINGE IVP PRN; -LIDOCAINE 1% 20 ML VIAL (10MG/ML) FOR IV START INTRADERMA PRN; -ONDANSETRON 4 MG/2 ML VIAL IVP ONE; -SCOPOLAMINE 1.5MG/72HR PATCH TRANSDERM ONE; -ceFAZolin 3 GM in SODIUM CHLORIDE 0.9% 100 ML IVPB ONE
[2021-06-03 11:46] VITALS: TEMP 97.8
[2021-06-03] MEDS ORDERED: LIDOCAINE 1% INJ 10MG/ML (20 ML MDV) ONE (12:29)
[2021-06-03] MEDS ORDERED: PROPOFOL 10 MG/ML 20 ML VIAL IV ONE (12:29)
--- NOTE | 2021-06-03 12:42 | P.PCN ---
Date of Procedure: 06/03/21 Procedure(s) Performed: BRIEF HISTORY: Patient is a 65-year-old, pleasant, white male scheduled for an upper endoscopy as a part of evaluation of severe epigastric pain for the last 3 months duration. He milligrams daily with no help. His and scheduled for an upper endoscopy to evaluate further ERCP of abdomen and pelvis done in March of this year which was unremarkable.. PROCEDURE PERFORMED: Esophagogastroduodenoscopy with biopsy. PREOPERATIVE DIAGNOSIS: Chronic epigastric pain of 3 months duration. IV sedation per anesthesia. PROCEDURE: After informed consent was obtained, the patient was brought into the endoscopy unit. IV sedation was administered by Anesthesia under continuous monitoring. Initially the Olympus GIF-140 video endoscope was inserted into the mouth. Esophagus intubated without any difficulty. It was gradually advanced into the stomach and duodenum and carefully examined. The bulb and the second part of the duodenum appeared normal. The scope at this time was withdrawn to the stomach, adequately insufflated with air, and upon careful examination, mucosa of the antrum, had mild gastritis and biopsies were done from this area. The body, cardia and the fundus appeared normal. The scope was then withdrawn into the esophagus. The GE junction was located at 42 cm from the incisors. It appeared irregular and there was a short tongue of Ventura's-appearing mucosa which was biopsied. This measured about 3 cm proximal to the GE junction. The rest of the esophagus appeared normal. There were no erosions or ulcerations seen and the patient tolerated the procedure well. IMPRESSION: 1. Mild antral gastritis. 2. 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 RECOMMENDATIONS: The findings of this examination were discussed with the patient as well as a family. He was advised to follow with the biopsy results. He was advised to continue with omeprazole 20 mg twice daily and follow antireflux measures. He'll be seen in office in 6 weeks.
[2021-06-03] MEDS ORDERED: IV FLUID CONTINUATION 500 ML IV ONE (12:45)
[2021-06-03 13:10] VITALS: BP 125/69; PULSE 77; RESP 16
== END 2021-06-03 13:51 | disposition home or self-care (01) ==
LOC: ORWHC2ENDO 10:38
PROVIDERS: ATTEND Internal Medicine Gastroenterology
DX: K29.50 Unspecified chronic gastritis without bleeding (principal); N42.9 Disorder of prostate, unspecified; M48.00 Spinal stenosis, site unspecified; K21.9 Gastro-esophageal reflux disease without esophagitis; E66.01 Morbid (severe) obesity due to excess calories; Z68.37 Body mass index [BMI] 37.0-37.9, adult; Z90.49 Acquired absence of other specified parts of digestive tract; Z98.890 Other specified postprocedural states; Z97.2 Presence of dental prosthetic device (complete) (partial); Z79.899 Other long term (current) drug therapy
CPT/HCPCS: 88305; 43239; J2001; J2704

== ENCOUNTER → 2021-08-11 | Day surgery (SDC) | payer MEDICARE ==
[~2021-08-11] MED LIST changes: +PROPOFOL 10 MG/ML 20 ML VIAL IV ONE
[2021-08-11 09:55] VITALS: BP 132/62; PULSE 77; RESP 18; TEMP 97.2
--- NOTE | 2021-08-11 10:51 | P.PCN ---
Date of Procedure: 08/11/21 Procedure(s) Performed: BRIEF HISTORY: Patient is a 65-year-old pleasant male scheduled for an elective colonoscopy as a part of evaluation of change in bowel habits with alternating diarrhea and constipation and intermittent rectal bleeding for the last 6 months duration. Last colonoscopy was 7 years ago. PROCEDURE PERFORMED: Colonoscopy with biopsy. PREOPERATIVE DIAGNOSIS: Chronic abdominal pain/Change in bowel habits and intermittent rectal bleeding. IV sedation per Anesthesia. PROCEDURE: After informed consent was obtained, the patient, was brought into the endoscopy unit. IV sedation was administered by Anesthesia under continuous monitoring. Digital rectal examination was normal. Initially the Olympus CF-160 flexible video colonoscope was then inserted in the rectum, gradually advanced into the cecum without any difficulty. Careful examination was performed as the scope was gradually being withdrawn. Ileocecal valve and the appendiceal orifice were visualized and appeared normal. Prep was excellent. Mucosa of the cecum, ascending colon, transverse colon, descending colon, sigmoid colon, and rectum appeared normal. Random biopsies were done from ascending and descending colon to rule out microscopic/collagenous colitis. Scattered sigmoid diverticulosis seen. Retroflexion was performed in the rectum and no lesions were seen. The patient tolerated the procedure well. IMPRESSION: Normal-appearing colon from rectum to cecum with no evidence of colorectal neoplasia Scattered sigmoid diverticulosis . RECOMMENDATIONS: Findings of this examination were discussed with the patient as well as his family. He was advised to follow with the biopsy. Continue with a high-fiber diet and fiber supplements a regular
== END ==
LOC: ORWHC2ENDO 09:18
PROVIDERS: ATTEND Internal Medicine Gastroenterology
DX: K57.30 Diverticulosis of large intestine without perforation or abscess without bleeding (principal)
CPT/HCPCS: 45380; 88305; J2704

== ENCOUNTER → 2021-09-12 | Outpatient (CLI) | payer MEDICARE ==
[~2021-09-12] MED LIST changes: +BEBTELOVIMAB (EUA) 175 MG/2 ML VIAL IV ONE; -LACTATED RINGERS 1,000 ML IV SCH; -PROPOFOL 10 MG/ML 20 ML VIAL IV ONE; +SODIUM CHLORIDE 0.9% 500 ML 500 ML in EMPTY BAG 1 BAG IV PRN
[2021-09-12 12:10] VITALS: BP 124/83; PULSE 83; RESP 18; TEMP 98
== END ==
LOC: PROCWHC3 11:38
PROVIDERS: ATTEND Nurse Practitioner Adult Health
DX: U07.1 COVID-19 (principal); E66.9 Obesity, unspecified; Z68.36 Body mass index [BMI] 36.0-36.9, adult; Z91.030 Bee allergy status; Z87.891 Personal history of nicotine dependence
CPT/HCPCS: Q0222; M0222

== ENCOUNTER → 2021-12-08 | Outpatient (CLI) | payer MEDICARE ==
--- NOTE | 2021-12-08 10:53 | MR ---
EXAMINATION TYPE: MR lumbar spine wo con DATE OF EXAM: 12/08/2021 8:45 AM COMPARISON: MR lumbar spine 10/14/2016. CLINICAL INDICATION:Male, 66 years old with history of M48.061 SPINAL STENOSIS; TECHNIQUE: Multi planar, multi sequence imaging was performed utilizing: T1-weighted, T2-weighted, a nd turbo inversion recovery imaging of the lumbar spine. IV Contrast: None FINDINGS: Alignment: The lumbar vertebral bodies have preserved heights and alignment. Cord: The conus medullaris and the distal spinal cord appear unremarkable with regards to their signa l intensity and morphology. Bones/Discs: Bone signal is within normal limits. No suspicious abnormal bone marrow edema and invers ion recovery sequences. Some reactive bone edema noted at the adjoining endplates of L3 and L4 and L4 and L5. Multilevel degenerative disc disease is noted and most pronounced at the L3-L5. L1-L2: No significant disc pathology. Spinal canal is patent. The neural foramen are patent. L2-L3: Disc bulging and osteophytes with facet joint arthropathy result in mild spinal canal stenosis and moderate to severe right and mild left neural foraminal stenosis. L3-L4: Disc bulging and osteophytes with facet joint arthropathy result in mild spinal canal stenosis and moderate bilateral neural foraminal stenosis. L4-L5: Disc bulging and osteophytes with facet joint arthropathy result in severe spinal canal stenos is and severe left and moderate right neural foraminal stenosis. There is cauda equina bunching at th is level. L5-S1: Disc bulging and osteophytes with facet joint arthropathy result in mild spinal canal stenosis and moderate left and mild right neural foraminal stenosis. Other findings: None. IMPRESSION: 1. Similar L4-L5 severe spinal canal stenosis secondary to disc bulging and osteophytes with facet j oint arthropathy. Additional severe left neural foraminal stenosis at this level. 2. Similar L2-L3 facet joint arthropathy and disc bulging with moderate to severe right neural miguel angel inal stenosis.
== END | disposition home or self-care (01) ==
LOC: RADMRIMAIN 07:53
PROVIDERS: ATTEND Family Medicine
DX: M48.061 Spinal stenosis, lumbar region without neurogenic claudication (principal); M47.816 Spondylosis without myelopathy or radiculopathy, lumbar region
CPT/HCPCS: 72148

== ENCOUNTER 2022-01-06 17:19 | Emergency (ER) | payer MEDICARE ==
[2022-01-06 17:37] VITALS: RESP 16
[2022-01-06 18:34] LABS: Basophils % (A) 1 %; Eosinophils # (A) 0.2 k/uL (0-0.7); Eosinophils % (A) 4 %; HCT 41.4 % (39.0-53.0); HGB 14.2 gm/dL (13.0-17.5); Lymphocytes # (A) 1.5 k/uL (1.0-4.8); Lymphocytes % (A) 24 %; MCHC 34.3 g/dL (31.0-37.0); MCV 90.3 fL (80.0-100.0); Mean Platelet Volume 8.1; Monocytes # (A) 0.5 k/uL (0-1.0); Monocytes % (A) 8 %; Neutrophils # (A) 3.7 k/uL (1.3-7.7); Neutrophils % (A) 60 %; Platelet Count 298 k/uL (150-450); RBC 4.58 m/uL (4.30-5.90); RDW 12.9 % (11.5-15.5); WBC 6.1 k/uL (3.8-10.6)
[2022-01-06 18:37] LABS: ALT 22 U/L (4-49); AST 37 U/L (17-59); African American GFR (CKD) >90 (>60 ml/min/1.73 sqM); Albumin 4.4 g/dL (3.5-5.0); Alkaline Phosphatase 48 U/L (38-126); Anion Gap 11 mmol/L; Blood Urea Nitrogen 10 mg/dL (9-20); Calcium 8.7 mg/dL (8.4-10.2); Carbon Dioxide 25 mmol/L (22-30); Chloride 101 mmol/L (98-107); Glucose 92 mg/dL (74-99); Magnesium 1.8 mg/dL (1.6-2.3); Non-African American GFR(CKD) >90 (>60 ml/min/1.73 sqM); Potassium 4.5 mmol/L (3.5-5.1); Sodium 137 mmol/L (137-145); Total Bilirubin 0.7 mg/dL (0.2-1.3); Total Protein 7.1 g/dL (6.3-8.2)
--- NOTE | 2022-01-06 18:45 | ED ---
General Adult HPI - General Chief complaint: Chest Pain Stated complaint: sub-sternal pain Time Seen by Provider: 01/06/22 17:41 Source: patient, RN notes reviewed, old records reviewed Mode of arrival: ambulatory Limitations: no limitations - History of Present Illness Initial comments: 66-year-old male presents with a primary care for evaluation of epigastric abdominal pain and tenderness. Patient was seen by primary care provider today and noted to have a firm mass in the epigastrium. He does have a known ventral abdominal wall hernia which the patient states has not been an issue but over the past several days week he developed worsening pain. Patient was sent in for CT imaging of the abdomen. - Related Data Home Medications Medication Instructions Recorded Confirmed Baclofen 10 mg PO HS PRN 06/02/21 08/11/21 Omeprazole [PriLOSEC] 20 mg PO AC-BRKFST 06/02/21 08/11/21 Tamsulosin [Flomax] 0.4 mg PO DAILY 06/02/21 08/11/21 Previous Rx's Medication Instructions Recorded Cyclobenzaprine [Flexeril] 5 mg PO TID PRN #9 tablet 10/06/20 Allergies Allergy/AdvReac Type Severity Reaction Status Date / Time venom-honey bee Allergy Swelling Verified 09/12/21 12:11 [bee venom (honey bee)] Review of Systems ROS Statement: Those systems with pertinent positive or pertinent negative responses have been documented in the HPI. ROS Other: All systems not noted in ROS Statement are negative. Past Medical History Past Medical History: Musculoskeletal Disorder, Osteoarthritis (OA), Prostate Disorder Additional Past Medical History / Comment(s): NEUROPATHY NAINA FEET. DDD, SPINAL STENOSIS, L3-L5 DISC HERNIATION. HX PEPTIC ULCER. SPINAL MENINGITIS . VERTIGO. currently: abdominal pain, diff swallowing certain foods, irregular bowel movements,frequent urination, History of Any Multi-Drug Resistant Organisms: None Reported Past Surgical History: Cholecystectomy, Hernia Repair, Orthopedic Surgery, Tonsillectomy Additional Past Surgical History / Comment(s): RT ROTATOR CUFF SURGERY X 2. I&D LEFT LEG D/T GANGRENE. SINUS SURGERY(DEVIATED SEPTUM). GANGLION CYSTS. INFECTED GROIN LYMPH NODES; LYMPH NODES REMOVED-BENIGN. BILAT CTR. EGD/COLONOSCOPY. LASER VARICOSE VEINS. CHRIS FUNDOPLICATION, naina cataracts Past Anesthesia/Blood Transfusion Reactions: Previous Problems w/ Anesthesia Additional Past Anesthesia/Blood Transfusion Reaction / Comment(s): NO HX BLOOD TRANSFUSION. WOKE DURING SINUS Sx, Past Psychological History: No Psychological Hx Reported Smoking Status: Former smoker Past Alcohol Use History: None Reported Past Drug Use History: None Reported - Past Family History Mother Family Medical History: No Reported History Additional Family Medical History / Comment(s): . Father Family Medical History: CVA/TIA, Dementia, Hypertension Additional Family Medical History / Comment(s): PARKINSON'S, ETOH General Exam Limitations: no limitations General appearance: alert, in no apparent distress Head exam: Present: atraumatic, normocephalic Eye exam: Present: normal appearance, PERRL ENT exam: Present: normal exam Neck exam: Present: normal inspection. Absent: tenderness, meningismus Respiratory exam: Present: normal lung sounds bilaterally. Absent: respiratory distress, wheezes Cardiovascular Exam: Present: regular rate, normal rhythm GI/Abdominal exam: Present: distended, tenderness, mass (palpable firm, tender mass in the epigastrium) Extremities exam: Present: normal inspection, normal capillary refill. Absent: pedal edema Neurological exam: Present: alert, oriented X3, CN II-XII intact. Absent: motor sensory deficit Psychiatric exam: Present: normal affect, normal mood Skin exam: Present: warm, dry, intact. Absent: cyanosis, diaphoretic Course Vital Signs 01/06/22 01/06/22 17:34 19:37 Temperature 98.2 F 97.8 F Pulse Rate 75 69 Respiratory 16 16 Rate Blood Pressure 132/69 136/66 O2 Sat by Pulse 97 98 Oximetry EKG Findings - EKG Comments: EKG Findings:: ekg: sinus rhythm, left axis, rate of 69, [place] interval 162, QRS duration 88, QTC 382, no ST segment elevation. Medical Decision Making - Medical Decision Making 66-year-old male presenting for evaluation of epigastric abdominal pain and possible hernia. Patient does have a tenderness in the epigastrium right at the xiphoid. There is no rebound or guarding. He's has no obstructive symptoms, no vomiting or decrease in bowel movements. Patient is overall well-appearing with stable vitals. EKG sinus rhythm. I did perform workup for this epigastric pain including CBC, CMP, lactic acid, chest x-ray unremarkable. Imaging of the abdomen does not reveal any acute process. I did review these images specifically with the radiologist, no herniation felt to be present. patient given strict return parameters and will follow-up with primary care physician. - Lab Data Result diagrams: 01/06/22 18:20 01/06/22 18:20 Lab Results 01/06/22 01/06/22 01/06/22 Range/Units 18:20 18:20 18:20 WBC 6.1 (3.8-10.6) k/uL RBC 4.58 (4.30-5.90) m/uL Hgb 14.2 (13.0-17.5) gm/dL Hct 41.4 (39.0-53.0) % MCV 90.3 (80.0-100.0) fL MCH 31.0 (25.0-35.0) pg MCHC 34.3 (31.0-37.0) g/dL RDW 12.9 (11.5-15.5) % Plt Count 298 (150-450) k/uL MPV 8.1 Neutrophils % 60 % Lymphocytes % 24 % Monocytes % 8 % Eosinophils % 4 % Basophils % 1 % Neutrophils # 3.7 (1.3-7.7) k/uL Lymphocytes # 1.5 (1.0-4.8) k/uL Monocytes # 0.5 (0-1.0) k/uL Eosinophils # 0.2 (0-0.7) k/uL Basophils # 0.0 (0-0.2) k/uL PT 10.3 (9.0-12.0) sec INR 0.9 (<1.2) APTT 26.0 (22.0-30.0) sec Sodium 137 (137-145) mmol/L Potassium 4.5 (3.5-5.1) mmol/L Chloride 101 (98-107) mmol/L Carbon Dioxide 25 (22-30) mmol/L Anion Gap 11 mmol/L BUN 10 (9-20) mg/dL Creatinine 0.67 (0.66-1.25) mg/dL Est GFR (CKD-EPI)AfAm >90 (>60 ml/min/1.73 sqM) Est GFR (CKD-EPI)NonAf >90 (>60 ml/min/1.73 sqM) Glucose 92 (74-99) mg/dL Plasma Lactic Acid Navi (0.7-2.0) mmol/L Calcium 8.7 (8.4-10.2) mg/dL Magnesium 1.8 (1.6-2.3) mg/dL Total Bilirubin 0.7 (0.2-1.3) mg/dL AST 37 (17-59) U/L ALT 22 (4-49) U/L Alkaline Phosphatase 48 (38-126) U/L Troponin I (0.000-0.034) ng/mL Total Protein 7.1 (6.3-8.2) g/dL Albumin 4.4 (3.5-5.0) g/dL 01/06/22 01/06/22 Range/Units 18:20 18:20 WBC (3.8-10.6) k/uL RBC (4.30-5.90) m/uL Hgb (13.0-17.5) gm/dL Hct (39.0-53.0) % MCV (80.0-100.0) fL MCH (25.0-35.0) pg MCHC (31.0-37.0) g/dL RDW (11.5-15.5) % Plt Count (150-450) k/uL MPV Neutrophils % % Lymphocytes % % Monocytes % % Eosinophils % % Basophils % % Neutrophils # (1.3-7.7) k/uL Lymphocytes # (1.0-4.8) k/uL Monocytes # (0-1.0) k/uL Eosinophils # (0-0.7) k/uL Basophils # (0-0.2) k/uL PT (9.0-12.0) sec INR (<1.2) APTT (22.0-30.0) sec Sodium (137-145) mmol/L Potassium (3.5-5.1) mmol/L Chloride (98-107) mmol/L Carbon Dioxide (22-30) mmol/L Anion Gap mmol/L BUN (9-20) mg/dL Creatinine (0.66-1.25) mg/dL Est GFR (CKD-EPI)AfAm (>60 ml/min/1.73 sqM) Est GFR (CKD-EPI)NonAf (>60 ml/min/1.73 sqM) Glucose (74-99) mg/dL Plasma Lactic Acid Navi 0.9 (0.7-2.0) mmol/L Calcium (8.4-10.2) mg/dL Magnesium (1.6-2.3) mg/dL Total Bilirubin (0.2-1.3) mg/dL AST (17-59) U/L ALT (4-49) U/L Alkaline Phosphatase (38-126) U/L Troponin I <0.012 (0.000-0.034) ng/mL Total Protein (6.3-8.2) g/dL Albumin (3.5-5.0) g/dL Disposition Clinical Impression: Abdominal pain Disposition: HOME SELF-CARE Condition: Good Instructions (If sedation given, give patient instructions): Abdominal Pain (ED) Is patient prescribed a controlled substance at d/c from ED?: No Referrals: Shoaib Martinez MD [Primary Care Provider] - 1-2 days Time of Disposition: 20:34
--- NOTE | 2022-01-06 18:56 | XR ---
EXAMINATION TYPE: XR chest 2V DATE OF EXAM: 01/06/2022 COMPARISON: 06/17/2015 HISTORY: Chest pain TECHNIQUE: FINDINGS: Heart is normal. Lungs are clear of infiltrate. No heart failure. There is minor spurring i n the thoracic spine. Diaphragm is normal. IMPRESSION: No active cardiopulmonary disease. Normal heart. No change.
[2022-01-06 19:25] LABS: INR 0.9 (<1.2); Prothrombin Time 10.3 sec (9.0-12.0)
[2022-01-06 19:40] VITALS: TEMP 97.8
--- NOTE | 2022-01-06 20:14 | CT ---
EXAMINATION TYPE: CT abdomen pelvis w con DATE OF EXAM: 01/06/2022 COMPARISON: 04/14/2021 HISTORY: Xiphoid process pain. Hx of hernia repair and acid reflux. CT DLP: 2053.4 mGycm Automated exposure control for dose reduction was used. CONTRAST: Performed with IV Contrast, patient injected with 100cc mL of Isovue 300. Images obtained from the diaphragm to the floor the pelvis with the IV contrast. Lung bases are clear. No pleural effusion. Heart size is normal. No pericardial effusion. Liver spleen stomach pancreas appear intact. The bowel are not dilated. There is cholecystectomy. There is no adrenal mass. There are clips at the gastroesophageal junction. Kidneys show satisfactory contrast opacification. No hydronephrosis. Ureters are not dilated. No retroperitoneal adenopathy. N o inguinal hernia. Bladder distends smoothly. No pelvic mass. No free fluid in the pelvis. Appendix is posterior and appears normal. There is no mesenteric edema. No ascites or free air. No si gn of a bowel obstruction. There are few sigmoid diverticula. No diverticulitis. The lumbar vertebra appear intact. There is degenerative disc space narrowing from L3 to S1 with vacu um disc and spur formation. No compression fracture. There is multilevel mild lumbar facet arthropath y. There is some L4-5 bony spinal stenosis IMPRESSION: There is mild colonic diverticulosis. No diverticulitis. L4-5 bony spinal stenosis. No significant ch francisco compared to old exam. No acute abnormality.
[2022-01-06 21:24] VITALS: BP 110/70; PULSE 74
== END 2022-01-06 21:23 | disposition home or self-care (01) ==
LOC: EC 17:19
DX: R10.13 Epigastric pain (principal); M19.90 Unspecified osteoarthritis, unspecified site; Z87.891 Personal history of nicotine dependence; Z91.030 Bee allergy status; Z79.899 Other long term (current) drug therapy
CPT/HCPCS: 36415; 93005; 80053; 83605; 83735; 84484; 85025; 85610; 85730; 71046; 74177; 99285; Q9967

== ENCOUNTER → 2022-12-05 | Outpatient (CLI) | payer MEDICARE ==
--- NOTE | 2022-12-05 16:25 | US ---
EXAMINATION TYPE: US venous doppler duplex LE RT DATE OF EXAM: 12/05/2022 4:08 PM COMPARISON: NONE CLINICAL INDICATION: Male, 66 years old with history of M25.561 RIGHT KNEE PAIN; Right leg pain SIDE PERFORMED: Right TECHNIQUE: The lower extremity deep venous system is examined utilizing real time linear array sonog mercy with graded compression, doppler sonography and color-flow sonography. VESSELS IMAGED: Common Femoral Vein Deep Femoral Vein Greater Saphenous Vein * Femoral Vein Popliteal Vein Small Saphenous Vein * Proximal Calf Veins (* superficial vessels) Right Leg: Appears negative for DVT IMPRESSION: 1. Right lower extremity ultrasound negative for deep venous thrombosis.
== END | disposition home or self-care (01) ==
LOC: RADUSWWP 15:21
PROVIDERS: ATTEND Family Medicine
DX: M25.561 Pain in right knee (principal)

== ENCOUNTER → 2023-01-30 | Outpatient (CLI) | payer MEDICARE ==
--- NOTE | 2023-01-30 10:54 | MR ---
EXAMINATION TYPE: MR lumbar spine wo con DATE OF EXAM: 01/30/2023 COMPARISON: 12/08/2021 HISTORY: Lower back pain, BLE radiculopathy. TECHNIQUE: T1 and T2 axial and sagittal images of the lumbar spine are submitted. FINDINGS: There is no abnormal signal seen within the visualized spinal cord or paraspinal soft tissu es. Multilevel vacuum disc most marked at L3-4, L4-5 and L5 is At L1-2 there is no degenerative disc disease, disc herniation, or canal. No foraminal encroachment. At L2-3 there is moderate degenerative disc disease with diffuse disc bulging, ligamentum flavum hype rtrophy and facet arthropathy. Borderline central stenosis mild bilateral foraminal encroachment. At L3-4 there is moderate degenerative disc disease with broad-based disc pressures, ligamentum flavu m hypertrophy and facet arthropathy. Moderate canal stenosis. Moderate right and mild left foraminal encroachment At L4-5 there is moderate to severe degenerative disc disease with broad-based disc herniation greate r paracentrally on the left. Advanced facet arthropathy and ligamentum flavum contribute to severe ca nal stenosis. Moderate right and severe left foraminal encroachment. At L5-S1 there is severe degenerative disc disease and facet arthropathy. There is mild bilateral for aminal encroachment. Broad-based disc osteophyte complex with no definite canal stenosis. IMPRESSION: 1. No abdominal moderate to severe degenerative disc disease with disc protrusion and hypertrophic fi ndings resulting in multilevel canal stenosis and foraminal encroachment as discussed above. Most mar ked finding seen at L4-5 severe canal stenosis. 2. There is mild progression at L3-L4 with moderate canal stenosis, moderate right and mild left fora rose marie encroachment
== END | disposition home or self-care (01) ==
LOC: RADMRIMAIN 09:11
PROVIDERS: ATTEND Orthopaedic Surgery Orthopaedic Surgery of the Spine
DX: M51.16 Intervertebral disc disorders with radiculopathy, lumbar region (principal); M47.26 Other spondylosis with radiculopathy, lumbar region; M99.73 Connective tissue and disc stenosis of intervertebral foramina of lumbar region; M62.830 Muscle spasm of back; M41.86 Other forms of scoliosis, lumbar region; M25.78 Osteophyte, vertebrae; M25.561 Pain in right knee
CPT/HCPCS: 72148

== ENCOUNTER → 2023-08-16 | Outpatient (CLI) | payer MEDICARE ==
[2023-08-16 13:24] LABS: African American GFR (CKD) >90 (>60 ml/min/1.73 sqM); Blood Urea Nitrogen 12 mg/dL (9-20); Non-African American GFR(CKD) >90 (>60 ml/min/1.73 sqM)
--- NOTE | 2023-08-18 15:00 | CT ---
EXAMINATION TYPE: CT chest w con DATE OF EXAM: 08/16/2023 COMPARISON: None HISTORY: pulmonary nodule CT DLP: 728 mGycm, Automated exposure control for dose reduction was used. CONTRAST: Performed injected with 100 mL of Isovue 300. TECHNIQUE: Axial images were obtained at 5 mm thick sections. Reconstructed images are reviewed on [employer] MXR computer in the coronal plane. FINDINGS: The thyroid is somewhat heterogenous. There is some enlargement of the posterior left thyro id lobe No suspicious lung nodules or focal infiltrates are present. No enlarged mediastinal or hilar adenopathy is evident. The ascending aorta diameter at the level o f the main pulmonary artery is 3.5 cm. The main pulmonary artery diameter at the bifurcation is 2.[address] sections are obtained through the upper abdomen. Abdomen is essentially unremarkable. IMPRESSION: 1. No acute pulmonary process. 2. No suspicious lung nodules identified.
== END | disposition home or self-care (01) ==
LOC: RADCTMAIN 12:50
PROVIDERS: ATTEND Family Medicine
DX: R91.1 Solitary pulmonary nodule (principal)
CPT/HCPCS: 82565; 84520; 71260; 36415; Q9967

== ENCOUNTER → 2023-09-13 | Outpatient (CLI) | payer MEDICARE ==
--- NOTE | 2023-09-13 21:24 | MR ---
EXAMINATION TYPE: MR knee RT wo con DATE OF EXAM: 09/13/2023 COMPARISON: NONE HISTORY: Right knee pain and swelling, Hx surgery right knee TECHNIQUE: Multiplanar, multisequence images of the knee is performed without IV contrast. FINDINGS: MEDIAL MENISCUS: Truncated appearance to posterior horn with marked abnormal signal extending to radha cular surface. LATERAL MENISCUS: Absent posterior horn suspect surgically resected. Correlate clinically. CRUCIATE LIGAMENTS: The posterior cruciate ligament is intact and unremarkable. Abnormal signal with fraying of fibers of the anterior cruciate ligament. COLLATERAL LIGAMENTS: The medial collateral ligament and lateral collateral ligament complex are inta ct and unremarkable. EXTENSOR MECHANISM: Visualized quadriceps and patellar tendons are intact. EFFUSION: Moderate to large size suprapatellar joint effusion. POPLITEAL CYST: No popliteal/siegel cyst. TRICOMPARTMENT SPACES: Moderate to severe medial and lateral tibiofemoral compartment narrowing with moderate spurring. Moderate narrowing patellofemoral compartment. CARTILAGE: Significant Cartilaginous loss medial and lateral tibiofemoral compartments BONE MARROW SIGNAL: Heterogeneous increased T2 signal involving the central tibial plateau. OTHER: No additional significant abnormality is appreciated. IMPRESSION: 1. Full-thickness tear posterior horn medial meniscus. 2. Some tearing of the anterior cruciate ligament. 3. Moderate to large-sized suprapatellar joint effusion. 4. Moderate to advanced right compartment degenerative changes are present as detailed above.
== END | disposition home or self-care (01) ==
LOC: RADMRIMAIN 20:15
PROVIDERS: ATTEND Family Medicine
DX: S89.91XD Unspecified injury of right lower leg, subsequent encounter (principal); S83.241A Other tear of medial meniscus, current injury, right knee, initial encounter; M17.11 Unilateral primary osteoarthritis, right knee

== ENCOUNTER → 2024-04-08 | Outpatient (CLI) | payer BC, MEDICARE ==
--- NOTE | 2024-04-09 08:27 | MR ---
EXAMINATION TYPE: MR hip LT wo con DATE OF EXAM: 04/08/2024 4:26 PM COMPARISON: CT abdomen and pelvis January 06, 2022 CLINICAL INDICATION: Male, 68 years old with history of S39.013A STRAIN OF MUSCLE, FASCIA AND TENDON OF PE, Left hip pain with limited movement, Evaluate for gluteal medial rupture IV Contrast: cc (None if empty) Standard multiplanar, multisequence MRI departmental protocol Multiplanar, multisequence images of the pelvis focusing on the left hip were acquired without contra st. FINDINGS: There is symmetric moderate narrowing and acetabular spurring and both hips redemonstrated. There are symmetric small to moderate-sized bilateral hip joint effusions. Femoral head shapes are m aintained bilaterally. No suspicious serpiginous diminished T1 signal to suggest avascular necrosis. No suspicious increased T2 osseous edema. No significant groin hernia or adenopathy is present bilaterally. Muscle bulk is maintained bilateral ly. Moderate edema along the greater trochanter in the right hip. There is more significant focal flu id along the greater trochanter on the left hip. A focal tear is likely at this level. There is also asymmetric mild edema level of the left-sided ischial tuberosity. Enlarged prostate consistent with BPH is present. Sigmoid colonic diverticulosis is noted. IMPRESSION: Moderate degenerative changes in both hips as detailed above. Asymmetric Severe left-sided insertiona l tendinosis and tearing at level of the greater trochanter in the left hip. Mild insertional tendino sis at level of the initial tuberosity in the left hip. [facility], , 04/09/2024 8:25 AM
== END | disposition home or self-care (01) ==
LOC: RADMRIMAIN 15:23
PROVIDERS: ATTEND Orthopaedic Surgery
DX: S39.013A Strain of muscle, fascia and tendon of pelvis, initial encounter (principal); M16.0 Bilateral primary osteoarthritis of hip; X58.XXXA Exposure to other specified factors, initial encounter

== ENCOUNTER → 2024-07-01 | Outpatient (CLI) | payer BC, MEDICARE | END | disposition home or self-care (01) | LOC: LABWHC1 14:35 | PROVIDERS: ATTEND Urology | DX: C61 Malignant neoplasm of prostate (principal) | CPT/HCPCS: 36415; 84153 ==

== ENCOUNTER → 2024-08-04 | Outpatient (CLI) | payer BC, MEDICARE ==
[2024-08-04 15:50] LABS: INR 0.9 (<1.2); Partial Thromboplastin Time 23.9 sec (22.0-30.0)
--- NOTE | 2024-08-04 16:19 | XR ---
EXAMINATION TYPE: XR chest 2V DATE OF EXAM: 08/04/2024 3:37 PM COMPARISON: 01/06/2022 CLINICAL INDICATION: Male, 68 years old with history of PRE SURGICAL, spine surgery, TECHNIQUE: Frontal and lateral views FINDINGS: Heart normal size. Aorta and pulmonary vasculature are within normal limits. Hazy lower lung densitie s relating to overlying soft tissue. Mild hyperinflation. DISH throughout the thoracic spine. IMPRESSION: Correlate for underlying COPD. No acute cardiopulmonary process. [facility], , 08/04/2024 4:16 PM
[2024-08-04 18:09] LABS: Basophils # (A) 0.07 X 10*3/uL (0.00-0.10); Basophils % (A) 0.8 %; Eosinophils # (A) 0.13 X 10*3/uL (0.04-0.35); Eosinophils % (A) 1.4 %; HCT 45.5 % (39.6-50.0); HGB 14.5 g/dL (13.0-17.0); Lymphocytes # (A) 1.24 X 10*3/uL (0.90-5.00); Lymphocytes % (A) 13.4 %; MCH 30.1 pg (27.0-32.0); MCHC 31.9 g/dL (32.0-37.0); MCV 94.4 FL (80.0-97.0); Mean Platelet Volume 11.1 FL (9.5-12.2); Monocytes # (A) 1.13 X 10*3/uL (0.20-1.00); Monocytes % (A) 12.2 %; NRBC Per 100 WBC 0 X 10*3/uL (0.00-0.01); Neutrophils # (A) 6.64 X 10*3/uL (1.80-7.70); Neutrophils % (A) 71.4 %; Platelet Count 275 X 10*3/uL (140-440); RBC 4.82 X 10*6/uL (4.40-5.60); RDW 12.9 % (11.5-14.5); WBC 9.28 X 10*3/uL (4.50-10.00)
[2024-08-04 18:16] LABS: Blood Urea Nitrogen 18.3 mg/dL (9.0-27.0); Chloride 103 mmol/L (96-109); Glucose 109 mg/dL (70-110); Potassium 4.4 mmol/L (3.5-5.5); Sodium 142 mmol/L (135-145)
[2024-08-04 18:17] LABS: Calcium 9.1 mg/dL (8.7-10.3); Carbon Dioxide 28.3 mmol/L (21.6-31.8)
[2024-08-04 19:49] LABS: Appearance,Urine Clear (Clear); Bilirubin,Urine Negative (Negative); Blood,Urine Negative (Negative); Color,Urine Yellow (Yellow); Ketones,Urine Negative (Negative); Nitrite,Urine Negative (Negative); Specific Gravity,Urine 1.026 (1.001-1.030); Urobilinogen,Urine 0.2 E.U./DL
== END | disposition home or self-care (01) ==
LOC: LABWHC1 15:00
PROVIDERS: ATTEND Pediatrics
DX: Z22.322 Carrier or suspected carrier of Methicillin resistant Staphylococcus aureus (principal); Z01.818 Encounter for other preprocedural examination
CPT/HCPCS: 36415; 71046; 80048; 81003; 85025; 85610; 85730; 86850; 86900; 86901; 87070; 93005

== ENCOUNTER 2024-08-07 13:51 | Emergency (ER) | payer BC, MEDICARE ==
--- NOTE | 2024-08-07 15:04 | ED ---
General Adult HPI <MosieChristiano yap - Last Filed: 08/07/24 17:11> - General Source: patient, RN notes reviewed Mode of arrival: ambulatory Limitations: no limitations <Sarita Gallardo - Last Filed: 08/07/24 22:00> - General Chief complaint: Shortness of Breath Stated complaint: Back Pain/VY/Cough Time Seen by Provider: 08/07/24 14:06 - History of Present Illness Initial comments: Patient is a 68-year-old male with no known past medical history presenting from urgent care due to 2 days of sore throat and cough productive of green sputum. He went to urgent care today where they performed an x-ray. X-ray report brought with him states bibasilar interstitial opacities suggesting infection or atelectasis. He reports chest tightness with cough as well as some abdominal pain intermittently. He reports that he had some fatigue last week prior to these other symptoms starting. He denies fever, nausea/vomiting, orthopnea, hematuria/dysuria, hematochezia/melena. (Sarita Gallardo) - Related Data Home Medications Medication Instructions Recorded Confirmed Baclofen 10 mg PO HS PRN 06/02/21 08/11/21 Omeprazole [PriLOSEC] 20 mg PO AC-BRKFST 06/02/21 08/11/21 Tamsulosin [Flomax] 0.4 mg PO DAILY 06/02/21 08/11/21 Previous Rx's Medication Instructions Recorded Cyclobenzaprine [Flexeril] 5 mg PO TID PRN #9 tablet 10/06/20 Allergies Allergy/AdvReac Type Severity Reaction Status Date / Time venom-honey bee Allergy Swelling Verified 08/07/24 14:01 [bee venom (honey bee)] Review of Systems ROS Other: All systems not noted in ROS Statement are negative. <MoiseChristiano yap - Last Filed: 08/07/24 17:11> ROS Other: All systems not noted in ROS Statement are negative. Constitutional: Denies: fever, chills Eyes: Denies: eye pain, vision change Respiratory: Denies: dyspnea Cardiovascular: Denies: chest pain <Sarita Gallardo - Last Filed: 08/07/24 22:00> ROS Statement: Those systems with pertinent positive or pertinent negative responses have been documented in the HPI. Past Medical History Past Medical History: Musculoskeletal Disorder, Osteoarthritis (OA), Prostate Disorder Additional Past Medical History / Comment(s): NEUROPATHY NAINA FEET. DDD, SPINAL STENOSIS, L3-L5 DISC HERNIATION. HX PEPTIC ULCER. SPINAL MENINGITIS . VERTIGO. currently: abdominal pain, diff swallowing certain foods, irregular bowel movements,frequent urination, History of Any Multi-Drug Resistant Organisms: None Reported Past Surgical History: Cholecystectomy, Hernia Repair, Orthopedic Surgery, Tonsillectomy Additional Past Surgical History / Comment(s): RT ROTATOR CUFF SURGERY X 2. I&D LEFT LEG D/T GANGRENE. SINUS SURGERY(DEVIATED SEPTUM). GANGLION CYSTS. INFECTED GROIN LYMPH NODES; LYMPH NODES REMOVED-BENIGN. BILAT CTR. EGD/COLONOSCOPY. LASER VARICOSE VEINS. CHRIS FUNDOPLICATION, naina cataracts Past Anesthesia/Blood Transfusion Reactions: Previous Problems w/ Anesthesia Additional Past Anesthesia/Blood Transfusion Reaction / Comment(s): NO HX BLOOD TRANSFUSION. WOKE DURING SINUS Sx, Past Psychological History: No Psychological Hx Reported Smoking Status: Former smoker Past Alcohol Use History: None Reported Past Drug Use History: None Reported - Past Family History Mother Family Medical History: No Reported History Additional Family Medical History / Comment(s): . Father Family Medical History: CVA/TIA, Dementia, Hypertension Additional Family Medical History / Comment(s): PARKINSON'S, ETOH <Sarita Gallardo - Last Filed: 08/07/24 22:00> General Exam Limitations: no limitations General appearance: alert, in no apparent distress Head exam: Present: atraumatic Eye exam: Present: normal appearance ENT exam: Present: normal exam, normal oropharynx Respiratory exam: Present: decreased breath sounds (Diffuse). Absent: respiratory distress, wheezes, rales, rhonchi, chest wall tenderness, accessory muscle use Cardiovascular Exam: Present: regular rate, normal rhythm, normal heart sounds. Absent: systolic murmur, diastolic murmur GI/Abdominal exam: Present: soft, normal bowel sounds. Absent: distended Extremities exam: Absent: pedal edema Neurological exam: Present: alert, oriented X3 Psychiatric exam: Present: normal affect, normal mood <Sarita Gallardo - Last Filed: 08/07/24 22:00> Course Vital Signs 08/07/24 08/07/24 13:56 18:10 Temperature 98.7 F 99.6 F Pulse Rate 88 84 Respiratory 17 21 Rate Blood Pressure 157/79 149/80 O2 Sat by Pulse 97 95 Oximetry EKG Findings - EKG Results: EKG: interpreted by ERMD, sinus rhythm (Rate 84 bpm) - Blocks, [place], Hypertrophy, ST Abn: AV and intraventricular conduction: left anterior fascicular block <Christiano Campos - Last Filed: 08/07/24 17:11> Medical Decision Making - Lab Data Result diagrams: 08/07/24 16:29 08/07/24 16:29 <AndresChristiano - Last Filed: 08/07/24 17:11> - Lab Data Result diagrams: 08/07/24 16:29 08/07/24 16:29 <Sarita Gallardo - Last Filed: 08/07/24 22:00> - Medical Decision Making Was pt. sent in by a medical professional or institution (, PA, [employer], urgent care, hospital, or prison...) When possible be specific @ -No Did you speak to anyone other than the patient for history (EMS, parent, family, police, friend...)? What history was obtained from this source @ -No Did you review nursing and triage notes (agree or disagree)? Why? @ -I reviewed and agree with nursing and triage notes Were old charts reviewed (outside hosp., previous admission, EMS record, old EKG, old radiological studies, urgent care reports/EKG's, prison records)? Report findings @ -No old charts were reviewed Differential Diagnosis? @ -Pneumonia, pleural effusion, pneumothorax, hemothorax, COPD, asthma, CHF. This is not meant to be an all-inclusive list. EKG interpreted by me (3pts min.). @ -As above X-rays interpreted by me (1pt min.). @ -No acute pulmonary process, no cardiomegaly CT interpreted by me (1pt min.). @ -None done U/S interpreted by me (1pt. min.). @ -None done What testing was considered but not performed or refused? (CT, X-rays, U/S, labs)? Why? @ -None What meds were considered but not given or refused? Why? @ -None Did you discuss the management of the patient with other professionals (professionals i.e. , PA, [employer], lab, RT, psych nurse, sexual assault social worker, partner, teacher, client sales and service officer, director of casework)? Give summary @ -No Was smoking cessation discussed for >3mins.? @ -No Was critical care preformed (if so, how long)? @ -No Were there social determinants of health that impacted care today? How? (Homelessness, low income, unemployed, alcoholism, drug addiction, transportation, low edu. Level, literacy, decrease access to med. care, alf, rehab)? @ -No Was there de-escalation of care discussed even if they declined (Discuss DNR or withdrawal of care, Hospice)? DNR status @ -No What co-morbidities impacted this encounter? (DM, HTN, Smoking, COPD, CAD, Cancer, CVA, ARF, Chemo, Hep., AIDS, mental health diagnosis, sleep apnea, morbid obesity)? @ -None Was patient admitted / discharged? Hospital course, mention meds given and route, prescriptions, significant lab abnormalities, going to OR and other pertinent info. @ -Patient is a 68-year-old male with no known past medical history presenting from urgent care due to 2 days of sore throat and cough productive of green sputum. A CBC, CMP, BNP, troponin, Cepheid, strep, chest x-ray, EKG were performed. Chest x-ray shows no acute pulmonary process. Patient was discharged home. Return precautions discussed. Recommend patient follow-up with PCP in 1 to 2 days. Advised patient he can take Mucinex DM to aid with his symptoms. Undiagnosed new problem with uncertain prognosis? @ -No Drug Therapy requiring intensive monitoring for toxicity (Heparin, Nitro, Insulin, Cardizem)? @ -No Were any procedures done? @ -No Diagnosis/symptom? @ -Upper respiratory infection Acute, or Chronic, or Acute on Chronic? @ -Acute Uncomplicated (without systemic symptoms) or Complicated (systemic symptoms)? @ -Uncomplicated Side effects of treatment? @ -No Exacerbation, Progression, or Severe Exacerbation? @ -No Poses a threat to life or bodily function? How? (Chest pain, [place], AR, pneumonia, PE, COPD, DKA, ARF, appy, cholecystitis, CVA, Diverticulitis, Homicidal, Suicidal, threat to staff... and all critical care pts) @ -No (Sarita Gallardo) - Lab Data Lab Results 08/07/24 08/07/24 08/07/24 Range/Units 16:29 16:29 16:29 WBC 10.98 H (4.50-10.00) 10*3/uL RBC 4.68 (4.40-5.60) 10*6/uL Hgb 14.4 (13.0-17.0) g/dL Hct 43.2 (39.6-50.0) % MCV 92.3 (80.0-97.0) fL MCH 30.8 (27.0-32.0) pg MCHC 33.3 (32.0-37.0) g/dL Plt Count 231 (140-440) 10*3/uL MPV 10.5 (9.5-12.2) fL Immature Gran % (Auto) 0.5 % Neutrophils % 75.8 % Lymphocytes % 10.9 % Monocytes % 11.1 % Eosinophils % 1.3 % Basophils % 0.4 % Immature Gran # 0.06 H (0.00-0.04) 10*3/uL Neutrophils # 8.32 H (1.80-7.70) 10*3/uL Lymphocytes # 1.20 (0.90-5.00) 10*3/uL Monocytes # 1.22 H (0.20-1.00) 10*3/uL Eosinophils # 0.14 (0.04-0.35) 10*3/uL Basophils # 0.04 (0.00-0.10) 10*3/uL Sodium 134 L (137-145) mmol/L Potassium 4.7 (3.5-5.1) mmol/L Chloride 98 (98-107) mmol/L Carbon Dioxide 31 H (22-30) mmol/L Anion Gap 5 mmol/L BUN 14 (9-20) mg/dL Creatinine 0.65 L (0.66-1.25) mg/dL Est GFR (CKD-EPI)AfAm >90 (>60 ml/min/1.73 sqM) Est GFR (CKD-EPI)NonAf >90 (>60 ml/min/1.73 sqM) Glucose 93 (74-99) mg/dL Calcium 9.0 (8.4-10.2) mg/dL Total Bilirubin 0.7 (0.2-1.3) mg/dL AST 32 (17-59) U/L ALT 27 (4-49) U/L Alkaline Phosphatase 59 (38-126) U/L Troponin I <0.012 (0.000-0.034) ng/mL NT-Pro-B Natriuret Pep 388 pg/mL Total Protein 6.7 (6.3-8.2) g/dL Albumin 3.9 (3.5-5.0) g/dL Influenza Type A (PCR) (Not Detectd) Influenza Type B (PCR) (Not Detectd) RSV (PCR) (Not Detectd) SARS-CoV-2 (PCR) (Not Detectd) Group A Strep (PCR) (Not Detectd) 08/07/24 08/07/24 Range/Units 16:29 16:29 WBC (4.50-10.00) 10*3/uL RBC (4.40-5.60) 10*6/uL Hgb (13.0-17.0) g/dL Hct (39.6-50.0) % MCV (80.0-97.0) fL MCH (27.0-32.0) pg MCHC (32.0-37.0) g/dL Plt Count (140-440) 10*3/uL MPV (9.5-12.2) fL Immature Gran % (Auto) % Neutrophils % % Lymphocytes % % Monocytes % % Eosinophils % % Basophils % % Immature Gran # (0.00-0.04) 10*3/uL Neutrophils # (1.80-7.70) 10*3/uL Lymphocytes # (0.90-5.00) 10*3/uL Monocytes # (0.20-1.00) 10*3/uL Eosinophils # (0.04-0.35) 10*3/uL Basophils # (0.00-0.10) 10*3/uL Sodium (137-145) mmol/L Potassium (3.5-5.1) mmol/L Chloride (98-107) mmol/L Carbon Dioxide (22-30) mmol/L Anion Gap mmol/L BUN (9-20) mg/dL Creatinine (0.66-1.25) mg/dL Est GFR (CKD-EPI)AfAm (>60 ml/min/1.73 sqM) Est GFR (CKD-EPI)NonAf (>60 ml/min/1.73 sqM) Glucose (74-99) mg/dL Calcium (8.4-10.2) mg/dL Total Bilirubin (0.2-1.3) mg/dL AST (17-59) U/L ALT (4-49) U/L Alkaline Phosphatase (38-126) U/L Troponin I (0.000-0.034) ng/mL NT-Pro-B Natriuret Pep pg/mL Total Protein (6.3-8.2) g/dL Albumin (3.5-5.0) g/dL Influenza Type A (PCR) Not Detected (Not Detectd) Influenza Type B (PCR) Not Detected (Not Detectd) RSV (PCR) Not Detected (Not Detectd) SARS-CoV-2 (PCR) Not Detected (Not Detectd) Group A Strep (PCR) NOT DETECTED (Not Detectd) - EKG Data EKG Comments: Normal sinus rhythm, no ST segment changes, 88 bpm, QTc 387 ms (Sarita Gallardo) Disposition <Christiano Campos - Last Filed: 08/07/24 17:11> Is patient prescribed a controlled substance at d/c from ED?: No Time of Disposition: 17:51 <Sarita Gallardo - Last Filed: 08/07/24 22:00> Clinical Impression: Upper respiratory infection Disposition: HOME SELF-CARE Condition: Stable Instructions (If sedation given, give patient instructions): Upper Respiratory Infection (ED) Additional Instructions: Every disease is a spectrum and a small chance still exists that a serious condition could develop, for this reason, please monitor yourself closely for new, changing or worsening symptoms, symptoms that persist beyond 48 hours, fever, inability to tolerate/keep down fluids or your medications, inability to follow up with outpatient providers as instructed and should you experience these symptoms or should you have any further concerns for your wellbeing please return to the ED or call 911 immediately. You may take Mucinex DM as needed for cough and congestion. Your pain can be treated with ibuprofen and acetaminophen. You can take up to 400-600 mg of ibuprofen (Advil, Motrin) 3 times daily (every 8 hours) but can also use lower doses if this relieves your pain. Some people prefer naproxen (Aleve, Naprosyn) which can be taken in doses of 500 mg up to twice a day. Do not take both of these medicines together, and do not combine either with ketorolac (Toradol), meloxicam (Mobic), or indomethacin (Tivorbex). Some people can develop stomach discomfort with higher doses of either ibuprofen or naproxen, if this develops decrease your dose or stop taking it. If you need to take this dose daily for more than a week, please schedule an appointment for re-evaluation with your PCP. Please take these medications with food. You can take up to 1000 mg of acetaminophen (Tylenol) every 6 hours. Be careful as this is included in some medicines like Nyquil, [place], Percocet, Vicodin, STANBACK, Goody's Powders, and Excedrin. You can also use lidocaine patches for topical pain. You can purchase 4% patches over the counter at most drug stores. These can be helpful for pain from your muscles or bones. PLEASE call your primary care physician as soon as possible to arrange / discuss plan for followup appointment. Appointment in the next 1-3 days is strongly encouraged if possible. PLEASE let us know here before you leave if there is anything further we can do to be of any assistance. Take care and feel Better! Referrals: Tamiko Garcia DO [Primary Care Provider] - 1-2 days
--- NOTE | 2024-08-07 16:06 | XR ---
EXAMINATION TYPE: XR chest 2V DATE OF EXAM: 08/07/2024 CLINICAL INDICATION: Male, 68 years old with history of lester, TECHNIQUE: Frontal and lateral views of the chest are obtained. COMPARISON: Chest x-ray 3 days earlier FINDINGS: There is no focal air space opacity, pleural effusion, or pneumothorax seen. The cardiac silhouette size is upper limits of normal. Bridging osteophytes in the thoracic spine are redemonstra elvis. IMPRESSION: No acute pulmonary process. [facility], , 08/07/2024 4:04 PM
[2024-08-07 16:40] LABS: Basophils # (A) 0.04 10*3/uL (0.00-0.10); Basophils % (A) 0.4 %; Eosinophils # (A) 0.14 10*3/uL (0.04-0.35); Eosinophils % (A) 1.3 %; HCT 43.2 % (39.6-50.0); HGB 14.4 g/dL (13.0-17.0); Lymphocytes % (A) 10.9 %; MCH 30.8 pg (27.0-32.0); MCHC 33.3 g/dL (32.0-37.0); MCV 92.3 fL (80.0-97.0); Mean Platelet Volume 10.5 fL (9.5-12.2); Monocytes # (A) 1.22 10*3/uL (0.20-1.00); Monocytes % (A) 11.1 %; Neutrophils # (A) 8.32 10*3/uL (1.80-7.70); Neutrophils % (A) 75.8 %; Platelet Count 231 10*3/uL (140-440); RBC 4.68 10*6/uL (4.40-5.60); RDW 12.6 % (11.5-14.5); WBC 10.98 10*3/uL (4.50-10.00)
[2024-08-07 16:53] LABS: ALT 27 U/L (4-49); AST 32 U/L (17-59); African American GFR (CKD) >90 (>60 ml/min/1.73 sqM); Albumin 3.9 g/dL (3.5-5.0); Alkaline Phosphatase 59 U/L (38-126); Anion Gap 5 mmol/L; Blood Urea Nitrogen 14 mg/dL (9-20); Carbon Dioxide 31 mmol/L (22-30); Chloride 98 mmol/L (98-107); Glucose 93 mg/dL (74-99); Non-African American GFR(CKD) >90 (>60 ml/min/1.73 sqM); Potassium 4.7 mmol/L (3.5-5.1); Sodium 134 mmol/L (137-145); Total Bilirubin 0.7 mg/dL (0.2-1.3); Total Protein 6.7 g/dL (6.3-8.2)
[2024-08-07 17:01] LABS: NT-Pro-B-Type Natriuretic Pept 388 pg/mL
[2024-08-07 17:19] LABS: Influenza A Not Detected (Not Detectd); Influenza B Not Detected (Not Detectd); RSV Not Detected (Not Detectd)
[2024-08-07 18:17] VITALS: BP 149/80; PULSE 84; RESP 21; TEMP 99.6
== END 2024-08-07 18:12 | disposition home or self-care (01) ==
LOC: EC 13:51
DX: J06.9 Acute upper respiratory infection, unspecified (principal); I44.4 Left anterior fascicular block; Z91.030 Bee allergy status; Z87.891 Personal history of nicotine dependence
CPT/HCPCS: 36415; 71046; 80053; 83880; 84484; 85025; 87636; 87651; 99285